=== PATIENT | female | born 1945 | race Caucasian/White ===

== ENCOUNTER 2020-06-29 09:29 | Outpatient (CLI) | payer MEDICARE, SELFPAY ==
--- NOTE | ~2020-06-29 | MM_ITS ---
EXAMINATION: MM screening delbert BI w ariel HISTORY: Screening TECHNIQUE: Craniocaudal and mediolateral oblique 3-D tomosynthesis images were obtained and synthetic 2-D images were generated. CAD analysis was submitted and interpreted. COMPARISON: Comparison to multiple prior studies sequentially, with oldest reviewed study dated 07/2015. BREAST PARENCHYMAL COMPOSITION: There are scattered areas of fibroglandular density. FINDINGS: There is no evidence of suspicious mass, calcification, or architectural distortion to sugg est malignancy in either breast. There has been no suspicious interval change. IMPRESSION: 1. No mammographic evidence of malignancy. 2. Recommend routine screening mammography in one year. BI-RADS Category 1: Negative Reviewed, dictated and finalized at location A.
== END 2020-06-29 09:30 | disposition home or self-care (01) ==
PROVIDERS: PCP Family Medicine; Visit Provider Family Medicine
DX: Z12.31 Encounter for screening mammogram for malignant neoplasm of breast (principal)
CPT/HCPCS: 77063; 77067

== ENCOUNTER 2020-07-01 04:24 | Emergency (ER) | payer MEDICARE, SELFPAY ==
--- NOTE | ~2020-07-01 | XR_ITS ---
EXAMINATION: XR chest 2V DATE: 07/01/2020 04:54 INDICATION: Left-sided chest pain TECHNIQUE: PA and lateral views of the chest are obtained. COMPARISON: 04/29/2019 FINDINGS: The lungs are free of acute opacities. There is no pleural effusion or pneumothorax. The ca rdiomediastinal silhouette is normal. There is moderate thoracic spondylosis. Surgical clips in the r ight upper quadrant are likely from prior cholecystectomy. IMPRESSION: 1. No acute cardiopulmonary abnormality. Reviewed, dictated and finalized at location A.
[2020-07-01 04:26] VITALS: BP 137/69; PULSE 71; RESP 15; TEMP 36.8; O2SAT 97
--- NOTE | 2020-07-01 04:33 | ECG_ITS ---
Measurements Intervals [place] Rate: 69 P: 41 AR: 158 QRS: 11 QRSD: 102 T: 8 QT: 397 QTc: 426 Interpretive Statements SINUS RHYTHM MINIMAL Q WAVES- HIGH LATERAL LEADS BASELINE ARTIFACT- I, II, AVR, V1 BORDERLINE ECG Electronically Signed On 07-01-2020 7:01:54 CDT by Kulwant Marte D.O.
--- NOTE | 2020-07-01 04:33 | ED.CHESTPAIN ---
HPI - Chest Pain General Chief Complaint: Chest Pain Stated Complaint: chest pain Time Seen by Provider: 07/01/20 04:25 History of Present Illness HPI narrative: Epigastric pain radiating into the chest, neck, LUQ since last night. Described as aching. Moderate intesity. Feels like indigestion, but she became worried when it did not resolve. No SOB, Nausea. Related Data Home Medications Medication Instructions Recorded Confirmed albuterol sulfate 8 mg 8 mg PO Q12H 02/03/20 06/29/20 tablet,extended release,12 hr aspirin 81 mg tablet,delayed 81 mg PO DAILY 02/03/20 06/29/20 release oxybutynin chloride 15 mg 15 mg PO DAILY 06/08/20 06/29/20 tablet,extended release 24 hr Allergies Allergy/AdvReac Type Severity Reaction Status Date / Time Corticosteroids Allergy Intermediate topical: Verified 07/01/20 04:33 (Glucocorticoids) swelling at site of application hydrocortisone Allergy Intermediate RASH Verified 07/01/20 04:33 adhesive tape Allergy Mild Rash Verified 07/01/20 04:33 Review of Systems Review of Systems: All systems reviewed & are unremarkable except as noted in HPI and below Constitutional: Constitutional: Denies fever(s) Cardiovascular: Cardiovascular: Reports chest pain Respiratory: Respiratory: Denies dyspnea [facility] Social History Social History Smoking status: Never smoker Alcohol intake: never Additional living arrangements comments: Spouse Leonardo Gender identity (if verbalized by the patient): Female Exam Const: General: no acute distress and alert Nutritional Appearance: obese Orientation/consciousness: patient oriented x3 HENMT: Head: normal to inspection Neck: Neck: normal visual inspection and no lymphadenopathy Chest: Chest palpation & inspection: no tenderness Resp: Effort & Inspection: normal respiratory effort Auscultation: clear to auscultation bilaterally, no rales, no rhonchi and no wheezes Cardio: Jugular venous distension: no JVD Rate: regular rate Rhythm: regular rhythm Heart sounds: no murmurs GI: GI Palp: Yes Soft to palpation and No Tenderness to palpation present (GI) Other: nontender Skin: General skin exam: normal color Neuro: General: patient oriented x3 and moves all extremities Speech: normal speech Extrem: General: no edema Psych: Appearance: well kempt Affect: normal affect Course Vital Signs Vital signs: Vital Signs Temperature 36.8 C 07/01/20 04:26 Pulse Rate 71 07/01/20 04:26 Respiratory Rate 15 07/01/20 04:26 Blood Pressure 137/69 07/01/20 04:26 Pulse Oximetry 97 07/01/20 04:26 Temperature 36.8 C 07/01/20 04:26 Pulse Rate 70 07/01/20 04:42 Respiratory Rate 15 07/01/20 04:26 Blood Pressure 137/69 07/01/20 04:26 Pulse Oximetry 97 07/01/20 04:26 MDM - Chest Pain MDM Narrative Medical decision making narrative: Symptoms not typical for cardiac chest pain. More consistent with GI source. Pain greatly improved with GI cocktail. EKG shows no acute changes. Troponin negative. Pain has been present for several hours prior to presentation, so 3 hour troponin is not necessary. Medical Records Data Attestation: I reviewed the patient's medical records. Lab Data Attestation: I reviewed the patient's lab results. Result diagrams: 07/01/20 04:36 07/01/20 04:36 Labs: Lab Results 07/01/20 07/01/20 Range/Units 04:36 04:36 WBC 6.5 (4.5-10.0) K/mm3 RBC 4.04 L (4.2-5.4) M/mm3 Hgb 10.5 L (12.0-15.0) g/dL Hct 33.8 L (37.0-47.0) % MCV 83.7 (80-100) fl MCH 26.0 (26-34) pg MCHC 31.1 L (32-36) g/dl RDW 16.6 H (11.5-14.5) % Plt Count 204 (150-375) k/mm3 MPV 10.9 H (7.4-10.4) fl Immature Gran % (Auto) 0.3 (0-0.5) % Neut % (Auto) 59.7 (45.5-73.1) % Lymph % (Auto) 27.1 (18.3-44.2) % [place] % (Auto) 10.9 H (2.6-8.5) % Eos % (Auto) 1.7 (0-4.
[2020-07-01 04:42] VITALS: PULSE 70
[2020-07-01 04:44] LABS: Basophils Percent Auto 0.3 % (0.2-1.2); Eosinophils Absolute Auto 0.1 K/mm3 (0-0.3); Eosinophils Percent Auto 1.7 % (0-4.4); Hematocrit 33.8 % (37.0-47.0); Hemoglobin 10.5 g/dL (12.0-15.0); Immature Granulocyte Absolute 0.02 K/mm3 (0.00-0.031); Immature Granulocyte Percent A 0.3 % (0-0.5); Lymphocytes Absolute Auto 1.77 K/mm3 (0.9-3.2); Lymphocytes Percent Auto 27.1 % (18.3-44.2); Mean Corpuscular HGB Conc 31.1 g/dl (32-36); Mean Corpuscular Volume 83.7 fl (80-100); Mean Platelet Volume 10.9 fl (7.4-10.4); Monocytes Absolute Auto 0.7 K/mm3 (0.1-0.6); Monocytes Percent Auto 10.9 % (2.6-8.5); Neutrophils Absolute Auto 3.9 K/mm3 (1.3-6.7); Neutrophils Percent Auto 59.7 % (45.5-73.1); Platelet Count Result 204 k/mm3 (150-375); Red Blood Count 4.04 M/mm3 (4.2-5.4); Red Cell Distribution Width 16.6 % (11.5-14.5); White Blood Count 6.5 K/mm3 (4.5-10.0)
[2020-07-01 04:55] LABS: Alanine Aminotransferase 17 U/L (4-35); Albumin Level 4.2 g/dL (3.5-5.1); Alkaline Phosphatase 82 U/L (38-126); Aspartate Amino Transferase 22 U/L (14-36); Bilirubin,Total 0.4 mg/dL (0.2-1.3); Blood Urea Nitrogen 14 mg/dL (7-17); Calcium 9.8 mg/dL (8.4-10.2); Carbon Dioxide 28 mmol/L (22-30); Chloride 100 mmol/L (98-107); Estimated CRCL calculation 73 ml/min; Estimated Glomerular Filt Rate > 60; Glucose 122 mg/dL (65-105); Sodium 136 mmol/L (137-145)
[2020-07-01 05:07] LABS: Troponin I < 0.012 ng/mL (0.000-0.034)
[2020-07-01 05:48] VITALS: BP 132/64; PULSE 69; RESP 14; TEMP 36.3; O2SAT 97
== END 2020-07-01 05:52 | disposition home or self-care (01) ==
PROVIDERS: Emergency Provider Emergency Medicine; PCP Family Medicine
DX: R07.89 Other chest pain (principal)
CPT/HCPCS: 36415; 71046; 80053; 84484; 85025; 93005; 99284; A9270

== ENCOUNTER 2020-07-05 01:56 | Outpatient (CLI) | payer MEDICARE, SELFPAY ==
[2020-07-05 18:20] LABS: SARS-CoV-2 RNA PCR Negative
== END 2020-07-05 01:57 | disposition home or self-care (01) ==
LOC: ANHCOVIDDT 01:56
PROVIDERS: PCP Family Medicine; Visit Provider Internal Medicine Gastroenterology
DX: Z01.812 Encounter for preprocedural laboratory examination (principal); Z11.59 Encounter for screening for other viral diseases
CPT/HCPCS: 87635; C9803; U0003

== ENCOUNTER 2020-07-07 01:34 | Day surgery (SDC) | payer MEDICARE, SELFPAY ==
[2020-06-29 13:41] VITALS: BMI 33.3
[2020-07-07 09:23] VITALS: BP 125/54; PULSE 78; RESP 18; TEMP 36.4; O2SAT 100
[2020-07-07] MEDS: LACTATED RINGERS 1,000 ML 150 ML IV CONT (09:42)
[2020-07-07 09:46] LABS: Glucose Point of Care 96 (65-105)
--- NOTE | 2020-07-07 10:00 | WPDANESEPPF ---
Anes - Initial Pre Proc Eval Procedure: Operation Date: 07/07/20 10:00 Proposed Procedures p Screening Colonoscopy - Chris Carlson MD Date/Time: 07/07/20 10:00 Surgeon: Chris Carlson MD Pre Op Diagnosis: hx of polyp Patient Data Age: 74 Gender: F Height: 5 ft 4 in Weight: 86.9 kg Last Vital Signs Temp 97.6 F 07/07/20 09:23 Pulse 78 07/07/20 09:23 Resp 18 07/07/20 09:23 BP 125/54 L 07/07/20 09:23 Pulse Ox 100 07/07/20 09:23 Allergies Allergy/AdvReac Type Severity Reaction Status Date / Time Corticosteroids Allergy Intermediate topical: Verified 07/07/20 09:22 (Glucocorticoids) swelling at site of application hydrocortisone Allergy Intermediate RASH Verified 07/07/20 09:22 adhesive tape Allergy Mild Rash Verified 07/07/20 09:22 Home Medications Medication Instructions Recorded Confirmed Type venlafaxine 75 mg capsule,extended 75 mg PO DAILY #90 cap 10/07/19 07/07/20 Rx release 24 hr albuterol sulfate 8 mg 8 mg PO Q12H 02/03/20 07/07/20 History tablet,extended release,12 hr aspirin 81 mg tablet,delayed 81 mg PO DAILY 02/03/20 07/07/20 History release lisinopril 10 mg tablet 10 mg PO DAILY #90 tablet 03/31/20 07/07/20 Rx metformin 500 mg tablet,extended 500 mg PO DAILY #90 tablet 05/04/20 07/07/20 Rx release 24 hr isosorbide mononitrate 30 mg See Rx Instructions .ROUTE 06/01/20 07/07/20 Rx tablet,extended release 24 hr .COMPLEX #90 tablet rosuvastatin 10 mg tablet See Rx Instructions .ROUTE 06/01/20 07/07/20 Rx .COMPLEX #90 tablet oxybutynin chloride 15 mg 15 mg PO DAILY 06/08/20 07/07/20 History tablet,extended release 24 hr esomeprazole magnesium 40 mg 40 mg PO DAILY #90 cap 06/29/20 07/07/20 Rx capsule,delayed release metoprolol succinate 100 mg 100 mg PO .COMPLEX #90 tablet 07/02/20 07/07/20 Rx tablet,extended release 24 hr Laboratory Tests 07/07/20 09:41 POC Capillary Glucose 96 mg/dl mg/dl (65-105) Patient hx anesthesia problems: none Family hx anesthesia problems: none PMFSH Social History Social History Smoking status: Never smoker Alcohol intake: never Additional living arrangements comments: Spouse Leonardo Gender identity (if verbalized by the patient): Female Anes - Eval Final PreProcedure Day of Procedure 07/07/20 10:00 Patient weight: overweight Heart: regular rate and rhythm Lungs: clear to auscultation Airway: Mallampati scale class II Neurological: alert and oriented Last oral intake: >/= 8 hours ASA classification: III Emergent: no Anesthetic plan: proceed Anesthesia type and monitoring: general GIVS and standard monitoring Informed Consent: The patient's anesthetic plan and its attendant risks and benefits were discussed with the patient/family/POA. Questions were solicited and answers provided to the satisfaction of the patient/family/POA.
[2020-07-07 10:34] VITALS: BP 128/77; PULSE 80; RESP 16; O2SAT 100
[2020-07-07 10:44] VITALS: BP 138/69; PULSE 72; RESP 18; O2SAT 97
--- NOTE | 2020-07-09 10:50 | PM.HPGS ---
History of Present Illness History of Present Illness Consent: Risks, benefits, and alternatives have been discussed and questions answered. Patient agrees to proceed with procedure. Chief complaint: hx of polyp Narrative: Diana Mijares is a 74 year old female Here for colon cancer screening. She has had polyps removed in the past PMFSH Past Medical History Medical History Asthma, mild intermittent Chronic GERD Essential hypertension Palpitations with regular cardiac rhythm Type 2 diabetes mellitus without complications Surgical History Surgical History History of left hip replacement History of shoulder surgery right History of total right knee replacement Status post left partial knee replacement Social History Social History Smoking status: Never smoker Alcohol intake: never Additional living arrangements comments: Spouse Leonardo Gender identity (if verbalized by the patient): Female Meds Home Medications and Allergies Home Medications Medication Instructions Recorded Confirmed Type venlafaxine 75 mg capsule,extended 75 mg PO DAILY #90 cap 10/07/19 07/07/20 Rx release 24 hr albuterol sulfate 8 mg 8 mg PO Q12H 02/03/20 07/07/20 History tablet,extended release,12 hr aspirin 81 mg tablet,delayed 81 mg PO DAILY 02/03/20 07/07/20 History release lisinopril 10 mg tablet 10 mg PO DAILY #90 tablet 03/31/20 07/07/20 Rx metformin 500 mg tablet,extended 500 mg PO DAILY #90 tablet 05/04/20 07/07/20 Rx release 24 hr isosorbide mononitrate 30 mg See Rx Instructions .ROUTE 06/01/20 07/07/20 Rx tablet,extended release 24 hr .COMPLEX #90 tablet rosuvastatin 10 mg tablet See Rx Instructions .ROUTE 06/01/20 07/07/20 Rx .COMPLEX #90 tablet oxybutynin chloride 15 mg 15 mg PO DAILY 06/08/20 07/07/20 History tablet,extended release 24 hr esomeprazole magnesium 40 mg 40 mg PO DAILY #90 cap 06/29/20 07/07/20 Rx capsule,delayed release metoprolol succinate 100 mg 100 mg PO .COMPLEX #90 tablet 07/02/20 07/07/20 Rx tablet,extended release 24 hr Allergies Allergy/AdvReac Type Severity Reaction Status Date / Time Corticosteroids Allergy Intermediate topical: Verified 07/07/20 09:22 (Glucocorticoids) swelling at site of application hydrocortisone Allergy Intermediate RASH Verified 07/07/20 09:22 adhesive tape Allergy Mild Rash Verified 07/07/20 09:22 Exam Resp: Auscultation: clear to auscultation bilaterally Cardio: Rate: regular rate Rhythm: regular rhythm GI: GI Palp: Yes Soft to palpation and No Tenderness to palpation present (GI) Assessment and Plan Assessment and plan (1) Colon cancer screening: Code(s): Z12.11 - Encounter for screening for malignant neoplasm of colon Status: Acute Assessment and Plan: Colonoscopy with possible biopsy or polypectomy or cautery or injection of substances.
== END 2020-07-07 11:20 | disposition home or self-care (01) ==
PROVIDERS: PCP Family Medicine; Visit Provider Internal Medicine Gastroenterology
PROC: 0DJD8ZZ Inspection of Lower Intestinal Tract, Via Natural or Artificial Opening Endoscopic (ICD-10-PCS; CPT 45378; principal; 2020-07-07 10:00)
DX: Z12.11 Encounter for screening for malignant neoplasm of colon (principal); K57.30 Diverticulosis of large intestine without perforation or abscess without bleeding; Z86.010 Personal history of colon polyps; E11.9 Type 2 diabetes mellitus without complications; I10 Essential (primary) hypertension; J45.20 Mild intermittent asthma, uncomplicated; Z79.82 Long term (current) use of aspirin; Z79.84 Long term (current) use of oral hypoglycemic drugs
CPT/HCPCS: G0105; J2704; J7120

== ENCOUNTER 2020-07-22 09:28 | Outpatient (CLI) | payer MEDICARE, SELFPAY ==
--- NOTE | ~2020-07-22 | XR_ITS ---
EXAMINATION: XR knee LT min 4V DATE: 07/22/2020 09:57 INDICATION: Left knee pain. TECHNIQUE: 5 views of left knee were obtained. COMPARISON: Left knee radiographs 01/15/2018 FINDINGS: There is a medial compartment arthroplasty in near-anatomic alignment. No significant perip rosthetic lucency to suggest loosening or infection. No fracture. There is mild osteoarthritis of pat ellofemoral compartment. No knee joint effusion. IMPRESSION: 1. Medial compartment arthroplasty in near-anatomic alignment. 2. Mild osteoarthritis of patellofemoral compartment. Reviewed, dictated and finalized at location B.
== END 2020-07-22 09:29 | disposition home or self-care (01) ==
PROVIDERS: PCP Family Medicine; Visit Provider Family Medicine
DX: M17.12 Unilateral primary osteoarthritis, left knee (principal)
CPT/HCPCS: 73564

== ENCOUNTER 2021-03-11 12:36 | Outpatient (CLI) | payer MEDICARE, SELFPAY ==
--- NOTE | ~2021-03-11 | DEXA_ITS ---
Bone Density Report Name: Diana Mijares Age: 75 Sex: Female Ethnicity: White Date of : 1945 Indication: osteopenia; height loss; prior fracture; asthma or emphysema; hysterectomy; Referring Provider: Akilah Pascal Study: Bone densitometry was performed. Exam Date: March 11, 2021 Accession number: [id number] Bone Density: Region BMD T-score Z-score Classification AP Spine (L1-L4) 0.869 -1.6 0.7 Osteopenia Femoral Neck (Right) 0.686 -1.5 0.5 Osteopenia Total Hip (Right) 0.876 -0.5 1.1 Normal World Health Organization criteria for BMD impression classify patients as: Normal (T-score at or above -1.0), Osteopenia (T-score between -1.0 and -2.5), or Osteoporosis (T-score at or below -2.5). 10-year Fracture Risk(1): Major Osteoporotic Fracture 15% Hip Fracture 2.3% Reported Risk Factors: [place] (), Neck BMD=0.686, BMI=33.8, previous fracture (1) FRAX(R) Version 3.08. Fracture probability calculated for an untreated patient. Fracture probability may be lower if the patient has received treatment. Previous Exams: Region Exam Age BMD T-score BMD Change BMD Change Date g/cm2 vs Baseline vs Previous AP Spine(L1-L4) 03/11/2021 75 0.869 -1.6 -0.070(-7.5%)# 0.049(6.0%)# 08/26/2013 67 0.820 -2.1 -0.119(-12.7%) -0.056(-6.3%)# 05/17/2011 65 0.875 -1.6 -0.064(-6.8%)* 0.084(10.6%)* 01/07/2009 63 0.791 -2.3 -0.148(-15.7%) -0.148(-15.7%) 03/15/2005 59 0.939 -1.0 Total Hip(Right) 03/11/2021 75 0.876 -0.5 -0.095(-9.8%)# 0.010(1.1%)# 08/26/2013 67 0.867 -0.6 -0.105(-10.8%) 0.010(1.2%)# 05/17/2011 65 0.857 -0.7 -0.115(-11.8%) 0.027(3.3%)* 01/07/2009 63 0.829 -0.9 -0.142(-14.6%) -0.142(-14.6%) 03/15/2005 59 0.972 0.2 *Denotes significance at 95% confidence level, LSC for AP Spine = 0.022 g/cm2, LSC for Total Hip = 0.027 g/cm2 Clinical Information Provided by Patient: Has had a low trauma fracture Has the following medical conditions: Asthma or Emphysema, Hysterectomy Patient maximum height was 63.5 Menopause Age: 47 Does not regularly consume dairy products Drinks caffeinated beverages Onset of menses at age 14 Number of children 4 Impression: The patient has low bone mass, based on the Total Spine T-score. The patient has an estimated ten-year risk of hip fracture of 2.3% and an estimated ten-year risk of major fracture of 15%, based on the WHO FRAX algorithm. The patient has risk factors, including: previous fracture. No s
--- NOTE | ~2021-03-11 | MMUS_ITS ---
EXAMINATION: MM diagnostic delbert BI w ariel, US breast LT limited HISTORY: Left nipple inversion. Left breast pain. TECHNIQUE: Additional 3-D tomosynthesis images of the breasts were performed and synthetic 2-D images were generated. CAD analysis was submitted and interpreted. High resolution Limited left breast ultr asound was performed. COMPARISON: Comparison to multiple prior studies sequentially, with oldest reviewed study dated 01/07. BREAST PARENCHYMAL COMPOSITION: Breast composed of scattered areas of fibroglandular density. FINDINGS: MAMMOGRAPHIC FINDINGS: There is chronic left nipple inversion. There are no suspicious masses, calcifications or architectur al distortion to suggest malignancy. ULTRASOUND: Limited left breast ultrasound: At 4:00 near the nipple there is a 3 mm cyst. No suspicious masses to suggest malignancy. IMPRESSION: 1. No evidence for malignancy in either breast. 2. Routine yearly screening mammogram and regular clinical breast examination are recommended. BI-RADS Category 2: Benign finding(s). Reviewed, dictated and finalized at location A. IMPRESSION: 1. No evidence for malignancy in either breast. 2. Routine yearly screening mammogram and regular clinical breast examination a re recommended. BI-RADS Category 2: Benign finding(s).
== END 2021-03-11 12:37 | disposition home or self-care (01) ==
LOC: ANHIMG 12:37
PROVIDERS: PCP Family Medicine; Visit Provider Family Medicine
DX: N63.20 Unspecified lump in the left breast, unspecified quadrant (principal); N60.11 Diffuse cystic mastopathy of right breast; N60.12 Diffuse cystic mastopathy of left breast; M85.88 Other specified disorders of bone density and structure, other site; M85.851 Other specified disorders of bone density and structure, right thigh
CPT/HCPCS: 76642; 77062; 77066; 77080; G0279

== ENCOUNTER 2021-04-23 11:43 | Emergency (ER) | payer MEDICARE, SELFPAY ==
[2021-04-23 11:52] VITALS: BP 146/94; PULSE 59; RESP 16; TEMP 35.9; O2SAT 97
--- NOTE | 2021-04-23 12:07 | ED.EAR ---
HPI - Ear Problem General Chief complaint: Ear Stated complaint: ear Time Seen by Provider: 04/23/21 11:50 Source: patient Mode of arrival: ambulatory Limitations: no limitations History of Present Illness HPI Narrative: Diana Mijares is a 75 yo female with a history of GERD,. Hypertension, diabetes, high cholesterol, bladder leakage, , who comes to [facility] with complaints of a foreign object in her left ear that she states she has felt has been there for 2 days since she cut grass. She tried to extract with a Q-tip and said she thought she got Part of a bug out. Denies itching, pain, bleeding, tinnitus, dizziness Related Data Home Medications Medication Instructions Recorded Confirmed oxybutynin chloride 15 mg 15 mg PO DAILY 06/08/20 02/08/21 tablet,extended release 24 hr Allergies Allergy/AdvReac Type Severity Reaction Status Date / Time Corticosteroids Allergy Intermediate topical: Verified 07/07/20 09:22 (Glucocorticoids) swelling at site of application hydrocortisone Allergy Intermediate RASH Verified 07/07/20 09:22 adhesive tape Allergy Mild Rash Verified 07/07/20 09:22 Review of Systems Review of Systems: Narrative: CONSTITUTIONAL: Denies fever, chills, sweats. EYES: Denies visual changes, redness, discharge. ENT: Denies rhinorrhea, congestion, sore throat, foreign object in left ear CARDIOVASCULAR: Denies chest pain, palpitations, edema. RESPIRATORY: Denies dyspnea, wheezing, cough GASTROINTESTINAL: Denies abdominal pain, nausea, vomiting, diarrhea. GENITOURINARY: Denies dysuria, hematuria, abnormal discharge SKIN: Denies rash or itching. NEUROLOGIC: Denies numbness, or focal weakness. PSYCHIATRIC: Denies anxiety or depression. [facility] Past Medical History Medical History Asthma, mild intermittent Chronic GERD Essential hypertension Mixed hyperlipidemia Palpitations with regular cardiac rhythm Type 2 diabetes mellitus without complications Surgical History Surgical History History of left hip replacement History of shoulder surgery right History of total right knee replacement Status post left partial knee replacement Social History Social History Alcohol intake: never Additional living arrangements comments: Spouse Leonardo Gender identity (if verbalized by the patient): Female Comments At time of signature, I agree with nursing past medical, surgical, social and family history. There is no relevant family history pertinent to the presenting complaint. Exam Narrative: Exam Narrative: GENERAL: This is a well-nourished, well-developed patient, in mild distress. HEAD: normocephalic, atraumatic. EYES: Sclera clear/white. Vision is grossly intact. EARS: External ears normal, auditory canalon left has insect imbedded along TM and without drainage, TMs reddened with obstruction on left. hearing grossly intact. NOSE: External nose normal without nasal discharge, nares without redness, no rhinorrhea. THROAT: Mucous membranes moist, NECK: Neck supple, non-tender CARDIOVASCULAR: Regular rate and rhythm without murmurs, gallops, or rubs. RESPIRATORY: Clear to auscultation. Breath sounds equal bilaterally. No wheezes, rales, or rhonchi. GASTROINTESTINAL: Abdomen soft, SKIN: warm, intact with no suspicious lesions or rash, good texture and turgor. NEURO: awake, alert, and oriented to person, place and time. There were no obvious focal neurologic abnormalities. Steady gait EXTREMITIES: Normal range of motion. BACK: Nontender without deformity Course Course Emergency Course: Patient comes to [facility] with object in left ear that had to be dissected from cutting grass 2 days ago Flush with both elevated ear with water and with peroxide and using a lighted curette to curette. Unable to remove object trie
--- NOTE | 2021-04-23 12:46 | PC.NURSE ---
Multiple attempts to remove bug from left ear with elephant ear irrigation and suction. Per H Matias GARRIDO
== END 2021-04-23 13:26 | disposition home or self-care (01) ==
PROVIDERS: Emergency Provider Nurse Practitioner; PCP Family Medicine
DX: T16.2XXA Foreign body in left ear, initial encounter (principal); J45.909 Unspecified asthma, uncomplicated; G21.9 Secondary parkinsonism, unspecified; I10 Essential (primary) hypertension; E78.2 Mixed hyperlipidemia; E11.9 Type 2 diabetes mellitus without complications
CPT/HCPCS: 69200; 99213; G0463

== ENCOUNTER 2021-05-11 20:33 | Emergency (ER) | payer MEDICARE, SELFPAY ==
--- NOTE | ~2021-05-11 | CT_ITS ---
EXAMINATION: CT abdomen pelvis w con DATE: 05/12/2021 01:02 INDICATION: Left flank pain. UTI. TECHNIQUE: Computed tomography (CT) of the abdomen and pelvis was performed without intravenous contr ast. The dose-length product was 1122.64 mGy-cm. Automated exposure control and iterative reconstruct ion technique were employed. COMPARISON: CT dated 03/27/2011. FINDINGS: There is dependent atelectasis. Heart size normal. No significant pleural or pericardial ef fusion. Status post cholecystectomy. Mild atherosclerosis. No evidence for aneurysm. There is bilateral urothelial enhancement most prominent in the right mid ureter with subtle periuret eral edema. Small subcentimeter hypovascular left renal mass, most likely cysts. Mild right hydroneph rosis. Status post cholecystectomy. The spleen is unremarkable. Multiple accessory splenules. The pancreas, adrenal glands are unremarkable. Normal appendix. Nonobstructive bowel gas pattern. Status post hyste rectomy. Small hiatal hernia. Left total hip arthroplasty. No acute osseous abnormality. Moderate lumbar spondylosis with grade 1 degenerative spondylolisthesis at L5-S1. Accentuated lumbar lordosis. IMPRESSION: 1. Abnormal bilateral urothelial enhancement/thickening, most prominent in the right mid ureter. Find ings suspicious for ascending urinary tract infection given the clinical history, although transition al cell carcinoma of the ureter is not excluded. Consider urology consultation. Reviewed, dictated and finalized at location A. IMPRESSION: 1. Abnormal bilateral urothelial enhancement/thickening, most prominent in the right mid ureter. Findings suspicious for ascending urinary tract infection giv en the clinical history, although transitional cell carcinoma of the ureter is not excluded. Consider urology consultation.
[2021-05-11 21:08] VITALS: BP 142/62; PULSE 118; RESP 14; TEMP 36.9; O2SAT 96
[2021-05-11 21:11] VITALS: BP 123/66; PULSE 112; RESP 18; TEMP 36.7; O2SAT 95
[2021-05-11 21:24] LABS: Basophils Percent Auto 0.3 % (0.2-1.2); Eosinophils Percent Auto 0.3 % (0-4.4); Hematocrit 35.9 % (37.0-47.0); Hemoglobin 11.7 g/dL (12.0-15.0); Immature Granulocyte Absolute 0.01 K/mm3 (0.00-0.031); Immature Granulocyte Percent A 0.1 % (0-0.5); Lymphocytes Absolute Auto 1.21 K/mm3 (0.9-3.2); Lymphocytes Percent Auto 17.2 % (18.3-44.2); Mean Corpuscular HGB Conc 32.6 g/dl (32-36); Mean Corpuscular Hemoglobin 27.7 pg (26-34); Mean Corpuscular Volume 85.1 fl (80-100); Mean Platelet Volume 10.5 fl (7.4-10.4); Monocytes Absolute Auto 0.9 K/mm3 (0.1-0.6); Monocytes Percent Auto 13.4 % (2.6-8.5); Neutrophils Absolute Auto 4.8 K/mm3 (1.3-6.7); Neutrophils Percent Auto 68.7 % (45.5-73.1); Platelet Count Result 195 k/mm3 (150-375); Red Blood Count 4.22 M/mm3 (4.2-5.4); Red Cell Distribution Width 16.3 % (11.5-14.5)
[2021-05-11 21:33] LABS: Alanine Aminotransferase 18 U/L (4-35); Alkaline Phosphatase 102 U/L (38-126); Anion Gap 8 mmol/L (8-16); Aspartate Amino Transferase 31 U/L (14-36); Bilirubin,Total 0.7 mg/dL (0.2-1.3); Blood Urea Nitrogen 11 mg/dL (7-17); Calcium 9.6 mg/dL (8.4-10.2); Carbon Dioxide 29 mmol/L (22-30); Chloride 99 mmol/L (98-107); Estimated CRCL calculation 63 ml/min; Estimated Glomerular Filt Rate > 60; Glucose 150 mg/dL (65-105); Lipase 57 U/L (23-300); Potassium 3.9 mmol/L (3.4-5.0); Sodium 136 mmol/L (137-145)
[2021-05-11 21:39] LABS: Add Urine Microscopic? YES; Appearance Urine Clear (Clear); Bilirubin Urine Negative (Negative); Blood Urine 1+ (Negative); Color Urine Yellow (Yellow); Glucose Urine UA Negative (Negative); Ketones Urine Trace mg/dL (Negative); Leukocyte Esterase Ur Trace LEU/UL (Negative); Mucus Urine Rare /lpf; Nitrate Urine Negative (Negative); Protein Urine 1+ mg/dL (Negative); Specific Grav Ur 1.011 (1.001-1.035); Squamous Epithelial Cell Urine Moderate /hpf (Few)
[2021-05-12 00:17] VITALS: BP 114/81; PULSE 100; RESP 16; TEMP 37.3; O2SAT 96
[2021-05-12] MEDS: SODIUM CHLORIDE 0.9% IV 1,000 ML 999 ML IV CONT (00:50)
[2021-05-12] MEDS: KETOROLAC 30 MG/ML VIAL (*BKC) 15 MG IV PUSH (01:11)
[2021-05-12] MEDS: ONDANSETRON INJ 4 MG/2 ML VIAL IV PUSH (01:11)
--- NOTE | 2021-05-12 01:17 | ED.GENADULT ---
HPI - General Adult General Chief complaint: Urogenital-Female Stated complaint: kidney infect, cant keep food down, fever, sunday Time Seen by Provider: 05/12/21 00:10 History of Present Illness HPI narrative: Patient 75-year-old female who presents the emergency department with chief complaint of abdominal discomfort and UTI. Patient reports she was diagnosed with a UTI by her primary care physician and has been taking what sounds like Macrobid. Patient states that she has been having the patient reports has been having nausea with this reports has had fevers reports that she does not feel as though her symptoms are improving. Patient states that there is some discomfort in her abdomen and in her flank. Related Data Home Medications Medication Instructions Recorded Confirmed oxybutynin chloride 15 mg 15 mg PO DAILY 06/08/20 05/03/21 tablet,extended release 24 hr Allergies Allergy/AdvReac Type Severity Reaction Status Date / Time Corticosteroids Allergy Intermediate topical: Verified 05/12/21 00:23 (Glucocorticoids) swelling at site of application hydrocortisone Allergy Intermediate RASH Verified 05/12/21 00:23 adhesive tape Allergy Mild Rash Verified 05/12/21 00:23 Review of Systems Review of Systems: Narrative: A 10 system review of systems was completed on the patient and is negative except for what is stated in the HPI. Nursing and ancillary documentation was reviewed. [facility] Past Medical History Medical History Asthma, mild intermittent Chronic GERD Essential hypertension Mixed hyperlipidemia Palpitations with regular cardiac rhythm Type 2 diabetes mellitus without complications Surgical History Surgical History History of left hip replacement History of shoulder surgery right History of total right knee replacement Status post left partial knee replacement Social History Social History Smoking status: Never smoker Alcohol intake: never Substance use: never Substance use type: does not use Additional living arrangements comments: Spouse Leonardo Gender identity (if verbalized by the patient): Female Exam Narrative: Exam Narrative: GENERAL: Well-appearing, well-nourished, and in no acute distress. HEAD: Normocephalic, atraumatic. EYES: PERRLA and EOMI. ENT: Nares clear, no rhinorrhea or epistaxis. Mucous membranes moist. NECK: Supple. CHEST: Clear to auscultation. No respiratory distress. HEART: Regular rate and rhythm. No murmur heard. Normal peripheral pulses. ABDOMEN: Soft, nontender, nondistended, normal active bowel sounds. EXTREMITIES: Normal range of motion. No edema. SKIN: Warm, dry, no rash. NEURO: No focal deficits. Alert and oriented x3. PSYCH: Normal mood and affect. Course Vital Signs Vital signs: Vital Signs Temperature 36.9 C 05/11/21 21:08 Pulse Rate 118 H 05/11/21 21:08 Respiratory Rate 14 05/11/21 21:08 Blood Pressure 142/62 H 05/11/21 21:08 Pulse Oximetry 96 05/11/21 21:08 Temperature 37.3 C 05/12/21 00:17 Pulse Rate 95 05/12/21 02:36 Respiratory Rate 18 05/12/21 02:36 Blood Pressure 117/69 05/12/21 02:36 Pulse Oximetry 97 05/12/21 02:36 Medical Decision Making Vital Signs Vital Signs: Vital Signs Temperature 36.9 C 05/11/21 21:08 Pulse Rate 118 H 05/11/21 21:08 Respiratory Rate 14 05/11/21 21:08 Blood Pressure 142/62 H 05/11/21 21:08 Pulse Oximetry 96 05/11/21 21:08 Temperature 37.3 C 05/12/21 00:17 Pulse Rate 95 05/12/21 02:36 Respiratory Rate 18 05/12/21 02:36 Blood Pressure 117/69 05/12/21 02:36 Pulse Oximetry 97 05/12/21 02:36 Lab Data Result diagrams: 05/11/21 21:17 05/11/21 21:17 Labs: Lab Results 05/11/21 05/11/21 05/11/21 Rang
--- NOTE | 2021-05-12 01:29 | PC.NURSE ---
Rocephin out of stock in the medical centers. Notified pharmacy at this time.
[2021-05-12 01:36] VITALS: BP 105/64; PULSE 94; RESP 16; O2SAT 97
--- NOTE | 2021-05-12 02:30 | PC.NURSE ---
Called pharmacy to follow up on Rocephin for pt. Spoke to Vignesh and he stated he will send up the medication.
[2021-05-12 02:36] VITALS: BP 117/69; PULSE 95; RESP 18; O2SAT 97
[2021-05-12 03:30] VITALS: BP 110/67; PULSE 97; RESP 18; O2SAT 95
== END 2021-05-12 03:30 | disposition home or self-care (01) ==
PROVIDERS: Family Medicine; Emergency Provider Emergency Medicine; PCP Family Medicine
DX: N10 Acute pyelonephritis (principal); J45.20 Mild intermittent asthma, uncomplicated; K21.9 Gastro-esophageal reflux disease without esophagitis; I10 Essential (primary) hypertension; E78.2 Mixed hyperlipidemia; E11.9 Type 2 diabetes mellitus without complications; Z96.653 Presence of artificial knee joint, bilateral; Z96.642 Presence of left artificial hip joint; Z79.84 Long term (current) use of oral hypoglycemic drugs
CPT/HCPCS: 36415; 74177; 80053; 81001; 83690; 85025; 87086; 87088; 96361; 96365; 96375; 99284; J0696; J1885; J2405; J7030; Q9967

== ENCOUNTER 2021-06-20 09:28 | Outpatient (CLI) | payer MEDICARE, SELFPAY ==
--- NOTE | ~2021-06-20 | CT_ITS ---
EXAMINATION: CT abdomen pelvis wo/w con DATE: 06/20/2021 10:50 INDICATION: Urothelial thickening and enhancement on recent CT TECHNIQUE: Computed tomography (CT) of the abdomen and pelvis was performed without intravenous contr ast. CT of the abdomen and pelvis was then performed with a total of 130 mL Omnipaque 350 intravenous contrast using a double-bolus technique for simultaneous opacification of the renal parenchyma and r enal collecting system. The dose-length product (DLP) was 2437.04 mGy-cm. Automated exposure control and iterative reconstruction technique were employed. COMPARISON: 05/02/2021 FINDINGS: Minimal dependent atelectasis is present in the lung bases. The heart size is normal. There is a small sliding hiatal hernia. The gallbladder is surgically absent. The liver, spleen, pancreas, and adrenal glands are normal. There is a 12 mm cyst of the left kidney upper pole. No suspicious re nal or urothelial lesion is identified. The previously described urothelial thickening has resolved. There is no hydronephrosis or hydroureter. The appendix is normal. Streak artifact from left hip arth roplasty partially obscures visualization of the pelvis. No pathologically enlarged abdominal or pelv ic lymph nodes are identified. There is no free intraperitoneal gas or evidence of bowel obstruction. There is calcified atherosclerosis of the aorta and many of the other arteries. There is moderate jamel mbar spondylosis. IMPRESSION: 1. Interval resolution of the previously described urothelial thickening and enhancement of the urete rs, most consistent with resolved infection/inflammation. Reviewed, dictated and finalized at location A. IMPRESSION: 1. Interval resolution of the previously described urothelial thickening and en hancement of the ureters, most consistent with resolved infection/inflammation.
--- NOTE | ~2021-06-20 | US_ITS ---
US renal BI 06/20/2021 10:56 Procedure: Realtime transabdominal ultrasound of the kidneys and bladder. Indication: Tubulointerstitial nephritis Comparison: No prior studies for comparison. Findings: Renal echotexture is normal bilaterally without hydronephrosis, contour deforming mass or r enal calculus. The right kidney measures 11.1 cm and left kidney measures 11.2 cm. Bladder within no rmal limits. Impression: 1: Unremarkable renal ultrasound. No stones, masses or hydronephrosis. Reviewed, dictated and finalized at location A. Impression: 1: Unremarkable renal ultrasound. No stones, masses or hydronephrosis.
[2021-06-20 10:28] LABS: Estimated Glomerular Filt Rate > 60
== END 2021-06-20 09:29 | disposition home or self-care (01) ==
LOC: ANHIMG 09:31
PROVIDERS: PCP Family Medicine; Visit Provider Family Medicine
DX: R10.12 Left upper quadrant pain (principal); R93.5 Abnormal findings on diagnostic imaging of other abdominal regions, including retroperitoneum
CPT/HCPCS: 74178; 76775; Q9967

== ENCOUNTER 2021-07-04 14:01 | Outpatient (CLI) | payer MEDICARE, SELFPAY ==
[2021-07-04 14:19] LABS: Basophils Percent Auto 0.3 % (0.2-1.2); Eosinophils Absolute Auto 0.2 K/mm3 (0-0.3); Eosinophils Percent Auto 2.6 % (0-4.4); Hematocrit 34.6 % (37.0-47.0); Hemoglobin 10.9 g/dL (12.0-15.0); Immature Granulocyte Absolute 0.01 K/mm3 (0.00-0.031); Immature Granulocyte Percent A 0.2 % (0-0.5); Lymphocytes Absolute Auto 1.44 K/mm3 (0.9-3.2); Lymphocytes Percent Auto 24.5 % (18.3-44.2); Mean Corpuscular HGB Conc 31.5 g/dl (32-36); Mean Corpuscular Hemoglobin 27.3 pg (26-34); Mean Corpuscular Volume 86.5 fl (80-100); Mean Platelet Volume 10.6 fl (7.4-10.4); Monocytes Absolute Auto 0.6 K/mm3 (0.1-0.6); Monocytes Percent Auto 9.5 % (2.6-8.5); Neutrophils Absolute Auto 3.7 K/mm3 (1.3-6.7); Neutrophils Percent Auto 62.9 % (45.5-73.1); Platelet Count Result 207 k/mm3 (150-375); Red Cell Distribution Width 15.8 % (11.5-14.5); Reticulocyte Hemoglobin Conten 30.3 pg (28.2-35.7); Reticulocyte Percent 1.73 % (0.7-4.3); Reticulocytes Absolute 0.07 B/L (32.2-175.7); White Blood Count 5.9 K/mm3 (4.5-10.0)
[2021-07-04 17:09] LABS: Iron 48 ug/dL (37-170)
[2021-07-04 17:11] LABS: Alanine Aminotransferase 17 U/L (4-35); Alkaline Phosphatase 74 U/L (38-126); Anion Gap 7 mmol/L (8-16); Aspartate Amino Transferase 22 U/L (14-36); Bilirubin,Total 0.4 mg/dL (0.2-1.3); Blood Urea Nitrogen 11 mg/dL (7-17); Calcium 9.4 mg/dL (8.4-10.2); Carbon Dioxide 26 mmol/L (22-30); Chloride 107 mmol/L (98-107); Estimated Glomerular Filt Rate > 60; Glucose 132 mg/dL (65-110); Lactate Dehydrogenase 399 U/L (313-618); Sodium 140 mmol/L (137-145)
[2021-07-04 17:19] LABS: Percent Iron Saturation 13 % (20-50)
[2021-07-04 18:17] LABS: Folic Acid 11.8 ng/mL (2.76->20)
[2021-07-07 10:54] LABS: Methylmalonic Acid 96 nmol/L (87-318)
== END 2021-07-04 14:02 | disposition home or self-care (01) ==
LOC: ANHLAB 14:03
PROVIDERS: PCP Family Medicine; Visit Provider Internal Medicine Hematology & Oncology
DX: D64.9 Anemia, unspecified (principal)
CPT/HCPCS: 36415; 80053; 82607; 82728; 82746; 83540; 83550; 83615; 83921; 84238; 85025; 85046

== ENCOUNTER → 2021-09-13 08:05 | Outpatient (CLI) | payer MEDICARE, SELFPAY ==
--- NOTE | ~2021-09-13 | XR_ITS ---
EXAMINATION: XR shoulder LT min 2V DATE: 09/13/2021 08:26 INDICATION: Left shoulder pain TECHNIQUE: AP internally and externally rotated, AP oblique externally rotated and axillary views of the left shoulder were obtained. COMPARISON: None FINDINGS: Normal alignment. No fracture.Mild glenohumeral and acromioclavicular osteoarthritis. Multilevel sev ere facet osteoarthritis at the left side of the mid to lower cervical spine. Visualized portion of t he left lung is clear. Soft tissues are unremarkable. IMPRESSION: Mild left glenohumeral and acromioclavicular osteoarthritis. Reviewed, dictated and finalized at location A.
== END ==
PROVIDERS: Visit Provider Orthopaedic Surgery
DX: M19.012 Primary osteoarthritis, left shoulder (principal)
CPT/HCPCS: 73030

== ENCOUNTER → 2021-11-01 14:29 | Outpatient (CLI) | payer MEDICARE, SELFPAY ==
--- NOTE | ~2021-11-01 | MR_ITS ---
EXAMINATION: MR shoulder LT wo con DATE: 11/01/2021 15:51 INDICATION: Left shoulder pain TECHNIQUE: Magnetic resonance imaging (MRI) of the left shoulder was performed without intravenous co ntrast. Sequences included axial PD-weighted FS FSE, coronal oblique PD-weighted FS FSE, coronal obli que T2-weighted FS FSE, sagittal PD-weighted FS FSE, and sagittal T1-weighted SE. COMPARISON: None. FINDINGS: Coracoacromial arch: The acromion undersurface is curved in morphology (type II). The coracoacromial ligament is normal. M oderate acromioclavicular osteoarthritis. Rotator cuff: Moderate supraspinatus and infraspinatus tendinopathy greatest at the conjoined portion of the tendon without discrete tear. Mild subscapularis tendinopathy without discrete tear. The teres minor tendon is normal. Relatively uniform mild likely age-related muscular atrophy at the shoulder. No asymmetri c rotator cuff muscle atrophy. Biceps tendon, glenoid labrum and glenohumeral cartilage: Mild tendinopathy of the intra-articular long head biceps tendon without discrete tear. Diffuse gunnar l tear which spares the 9:00 to 6:00 position of the posterior inferior glenoid labrum. Partial-thick ness cartilage loss at the glenoid with posterior predominance and small region of increased marrow s ignal along the posterior superior rim. Additional partial thickness cartilage loss at the humeral he ad with chondral surface regularity greatest at the superior to superomedial aspect of the humeral he ad. There is marrow edema surrounding a small region with increased subarticular sclerosis and flatte chaz of the articular cortex which could represent a small impaction fracture or collapsed region of osteonecrosis. Fluid: Small glenohumeral joint effusion predominantly in the axillary and deep subscapular recesses with pr oportional extension of fluid along the long head biceps tendon sheath.. 4 mm loose body at the axill lee recess. Mild increased fluid signal in the subacromial/subdeltoid bursa consistent with minimal b ursitis. Bones: In addition to the edema surrounding the small region of cortical flattening of the humeral head ther e is also some mild cystlike change at the superior facet footplate of the rotator cuff and increased marrow signal along the lateral margin of the intertubercular groove. IMPRESSION: 1. Mild to moderate glenohumeral osteoarthritis with diffuse labral tear relatively sparing the poste rior inferior labrum. 2. Marrow edema surrounding a small region of flattening of the articular cortex at the superomedial humeral head which could represent a small impaction fracture if there has been prior trauma or colla psed region of osteonecrosis. 3. Moderate supraspinatus and infraspinatus tendinopathy and mild subscapularis tendinopathy without discrete tear. 4. Mild tendinopathy of the intra-articular long head biceps tendon. 5. Moderate acromioclavicular osteoarthritis with minimal subacromial/subdeltoid bursitis. Reviewed, dictated and finalized at location B. [employer] IMPRESSION: 1. Mild to moderate glenohumeral osteoarthritis with diffuse labral tear relati vely sparing the posterior inferior labrum. 2. Marrow edema surrounding a small region of flattening of the articular heriberto x at the superomedial humeral head which could represent a small impaction frac ture if there has been prior trauma or collapsed region of osteonecrosis. 3. Moderate supraspinatus and infraspinatus tendinopathy and mild subscapularis tendinopathy without discrete tear. 4. Mild tendinopathy of the intra-articular long head biceps tendon. 5. Moderate acromioclavicular osteoarthritis with minimal subacromial/subdeltoi d bursitis.
== END ==
PROVIDERS: PCP Family Medicine; Visit Provider Nurse Practitioner
DX: M19.012 Primary osteoarthritis, left shoulder (principal)
CPT/HCPCS: 73221

== ENCOUNTER 2021-11-15 13:20 | Outpatient (CLI) | payer MEDICARE, SELFPAY ==
--- NOTE | ~2021-11-15 | US_ITS ---
US renal BI 11/15/2021 13:59 Procedure: Realtime transabdominal ultrasound of the kidneys and bladder. Indication: Right flank pain for one week. Comparison: Ultrasound dated 06/20/2021 Findings: Renal echotexture is normal bilaterally without hydronephrosis, contour deforming mass or r enal calculus. The right kidney measures 11.1 cm and left kidney measures 11.3 cm. Bladder within no rmal limits. Impression: 1: Unremarkable renal ultrasound. No stones, masses or hydronephrosis. Reviewed, dictated and finalized at location A. LASTER Impression: 1: Unremarkable renal ultrasound. No stones, masses or hydronephrosis.
== END 2021-11-15 13:21 | disposition home or self-care (01) ==
LOC: ANHIMG 13:25
PROVIDERS: PCP Family Medicine; Visit Provider Family Medicine
DX: R10.9 Unspecified abdominal pain (principal)
CPT/HCPCS: 76775

== ENCOUNTER 2021-12-01 07:24 | Outpatient (RCR) | payer MEDICARE, SELFPAY ==
[2021-12-01 11:34] VITALS: BP 107/53; PULSE 82; RESP 18; TEMP 35.4; O2SAT 98
[2021-12-01] MEDS: ACETAMINOPHEN 325 MG TABLET 650 MG PO (11:35)
[2021-12-01] MEDS: FAMOTIDINE 20 MG TABLET PO (11:35)
[2021-12-01] MEDS: diphenhydrAMINE HCl CAP 25 MG CAPSULE PO (11:35)
[2021-12-01 12:58] VITALS: BP 103/40; PULSE 61; O2SAT 94
[2021-12-01 13:00] VITALS: BP 96/36
== END 2021-12-01 17:00 ==
LOC: AMCINF 07:24
PROVIDERS: PCP Family Medicine; Referring Provider Family Medicine; Visit Provider Internal Medicine Hematology & Oncology
DX: U07.1 COVID-19 (principal); I10 Essential (primary) hypertension; E11.9 Type 2 diabetes mellitus without complications
CPT/HCPCS: A9270; M0247; Q0247

== ENCOUNTER 2022-03-07 10:24 | Outpatient (CLI) | payer MEDICARE, SELFPAY ==
--- NOTE | ~2022-03-07 | XR_ITS ---
EXAMINATION: XR lg joint inject/asp w image DATE: 03/07/2022 11:33 INDICATION: Right hip pain. TECHNIQUE: A time-out was performed to verify the patient's name, date of , and procedure to b e performed. The procedure including the risks, benefits, and alternatives was discussed with the pat ient. Risks discussed included bleeding and infection. The patient understood the risks and agreed to proceed. The skin overlying the right hip joint was prepped and draped in usual sterile fashion. A nesthetic was administered with 1% lidocaine subcutaneously. A 22 G needle was advanced under fluoro scopic guidance into the joint. Injection of 1 mL of Omnipaque 240 confirmed intra-articular positio n of the needle. Subsequently, injectate consisting of 5 mL 1% lidocaine and 2 mL 10 mg/mL Kenalog w as instilled. The needle was removed and the entry site was cleaned and dressed. There were no imme diate complications. Fluoroscopy exposure time was 0.1 minutes. The total number of images was 2. FINDINGS: Real-time fluoroscopy demonstrates the needle in the right hip joint. Patient's pain prior to procedure:5/10. Patient's pain following the procedure: 2/10. IMPRESSION: 1. Fluoroscopy guided right hip joint injection of local anesthetic and steroid with decrease in the patient's presenting pain. Reviewed, dictated and finalized at location A.
== END 2022-03-07 10:25 | disposition home or self-care (01) ==
PROVIDERS: PCP Family Medicine; Visit Provider Nurse Practitioner
DX: M25.551 Pain in right hip (principal)
CPT/HCPCS: 20610; 77002; J3301; Q9966

== ENCOUNTER → 2022-04-04 08:43 | Outpatient (CLI) | payer MEDICARE, SELFPAY ==
--- NOTE | ~2022-04-04 | MR_ITS ---
EXAMINATION: MR hip RT wo con DATE: 04/04/2022 09:45 INDICATION: Unilateral primary osteoarthritis of the right hip TECHNIQUE: Magnetic resonance imaging (MRI) of the right hip was performed without intravenous contr ast. Sequences included full-field axial PD-weighted FS FSE and T1-weighted FSE, coronal of the pelvi s with PD-weighted FS FSE, T2-weighted FSE and T1-weighted FSE, small field of view of the right hip with axial PD-weighted FS FSE, sagittal PD-weighted FS FSE, coronal PD-weighted FS FSE and coronal T2 weighted FSE. Additional radial T1-weighted FGR oriented orthogonal to the acetabular rim were obt ained for evaluation of the labrum. COMPARISON: Right hip radiograph dated 03/15/2022 FINDINGS: Bones/labrum/cartilage: Alignment is normal. Metallic magnetic field artifact associated with a left total hip arthroplasty. There is prominent marrow edema at the right femoral head and neck appears centered around a small li near low signal intensity subarticular likely insufficiency fracture at the apex of the femoral head. There does not appear to be appreciable collapse of the articular cortex. Nonuniform cartilage loss consistent with osteoarthritis with moderate joint space narrowing at the superior and superomedial a spect of the joint space with subarticular edema at the superomedial aspect of the acetabulum. There is a linear tear at the base of the superolateral right acetabular labrum. More amorphous increased s ignal consistent with degeneration at the posterior superior labrum. Diminutive anterosuperior labrum also likely related to chronic degeneration. Fluid: Moderate-sized right hip joint effusion. No other abnormal fluid collections identified. Soft tissues: No asymmetric muscle atrophy in the pelvis and visualized proximal thighs. Mild likely reactive edema in the soft tissues about the last the intertrochanteric region of the right femur. The iliopsoas, g luteal and proximal hamstring tendons are normal. The uterus is not identified and has likely been donis rgically resected. Small fat-containing umbilical hernia. Limited evaluation of visceral organs of th e pelvis is otherwise unremarkable. No pathologically enlarged pelvic/inguinal lymphadenopathy. IMPRESSION: 1. Moderate right hip osteoarthritis with diffuse labral tear/degeneration. 2. Subarticular likely stress versus insufficiency fracture at the apex of the right femoral head wit h likely secondary reactive moderate sized right hip joint effusion. Reviewed, dictated and finalized at location A. IMPRESSION: 1. Moderate right hip osteoarthritis with diffuse labral tear/degeneration. 2. Subarticular likely stress versus insufficiency fracture at the apex of the right femoral head with likely secondary reactive moderate sized right hip join t effusion.
== END ==
PROVIDERS: PCP Family Medicine; Visit Provider Nurse Practitioner
DX: M16.11 Unilateral primary osteoarthritis, right hip (principal)
CPT/HCPCS: 73721

== ENCOUNTER 2022-04-04 10:23 | Outpatient (CLI) | payer MEDICARE, SELFPAY ==
[2022-04-04 10:50] LABS: Basophils Percent Auto 0.4 % (0.2-1.2); Eosinophils Absolute Auto 0.1 K/mm3 (0-0.3); Eosinophils Percent Auto 2.6 % (0-4.4); Hematocrit 33.6 % (37.0-47.0); Hemoglobin 10.8 g/dL (12.0-15.0); Immature Granulocyte Absolute 0.02 K/mm3 (0.00-0.031); Immature Granulocyte Percent A 0.4 % (0-0.5); Lymphocytes Absolute Auto 1.34 K/mm3 (0.9-3.2); Lymphocytes Percent Auto 26.9 % (18.3-44.2); Mean Corpuscular HGB Conc 32.1 g/dl (32-36); Mean Corpuscular Hemoglobin 28.7 pg (26-34); Mean Corpuscular Volume 89.4 fl (80-100); Mean Platelet Volume 10.4 fl (7.4-10.4); Monocytes Absolute Auto 0.5 K/mm3 (0.1-0.6); Monocytes Percent Auto 10.2 % (2.6-8.5); Neutrophils Percent Auto 59.5 % (45.5-73.1); Platelet Count Result 217 k/mm3 (150-375); Red Blood Count 3.76 M/mm3 (4.2-5.4); Red Cell Distribution Width 15.9 % (11.5-14.5)
[2022-04-04 11:04] LABS: Rheumatoid Factor < 8.6 IU/ML (<12)
[2022-04-04 11:05] LABS: CRP 0.7 mg/dL (<1.0); Uric Acid 5.1 mg/dL (2.5-7.5)
[2022-04-04 12:14] LABS: Erythrocyte Sedimentation Rate 18 mm/hr (0-20)
[2022-04-08 17:28] LABS: Anti Nuclear Antibody Pattern Nuclear, Nucleolar
== END 2022-04-04 10:24 | disposition home or self-care (01) ==
LOC: ANHLAB 10:25
PROVIDERS: PCP Family Medicine; Visit Provider Nurse Practitioner
DX: M16.11 Unilateral primary osteoarthritis, right hip (principal); D89.9 Disorder involving the immune mechanism, unspecified
CPT/HCPCS: 36415; 84550; 85025; 85652; 86038; 86039; 86140; 86430

== ENCOUNTER 2022-07-04 10:08 | Outpatient (CLI) | payer MEDICARE, SELFPAY ==
[2022-07-04 19:03] LABS: Basophils Percent Auto 0.5 % (0.2-1.2); Eosinophils Absolute Auto 0.1 K/mm3 (0-0.3); Eosinophils Percent Auto 1.9 % (0-4.4); Hemoglobin 11.4 g/dL (12.0-15.0); Immature Granulocyte Absolute 0.02 K/mm3 (0.00-0.031); Immature Granulocyte Percent A 0.3 % (0-0.5); Lymphocytes Absolute Auto 1.25 K/mm3 (0.9-3.2); Lymphocytes Percent Auto 21.1 % (18.3-44.2); Mean Corpuscular HGB Conc 30.8 g/dl (32-36); Mean Corpuscular Hemoglobin 27.9 pg (26-34); Mean Corpuscular Volume 90.5 fl (80-100); Mean Platelet Volume 10.9 fl (7.4-10.4); Monocytes Absolute Auto 0.6 K/mm3 (0.1-0.6); Monocytes Percent Auto 9.5 % (2.6-8.5); Neutrophils Percent Auto 66.7 % (45.5-73.1); Platelet Count Result 239 k/mm3 (150-375); Red Blood Count 4.09 M/mm3 (4.2-5.4); Red Cell Distribution Width 16.7 % (11.5-14.5); White Blood Count 5.9 K/mm3 (4.5-10.0)
[2022-07-04 19:18] LABS: Alanine Aminotransferase 23 U/L (6-35); Albumin Level 4.3 g/dL (3.5-5.1); Alkaline Phosphatase 90 U/L (38-126); Anion Gap 8 mmol/L (8-16); Aspartate Amino Transferase 37 U/L (14-36); Bilirubin,Total 0.4 mg/dL (0.2-1.3); Blood Urea Nitrogen 12 mg/dL (7-17); Calcium 9.4 mg/dL (8.4-10.2); Carbon Dioxide 28 mmol/L (22-30); Chloride 100 mmol/L (98-107); Cholesterol 146 mg/dL (0-200); Estimated Glomerular Filt Rate > 60; Glucose 104 mg/dL (65-110); HDL Direct 51 mg/dL; Potassium 4.3 mmol/L (3.4-5.0); Sodium 136 mmol/L (137-145); Triglycerides 117 mg/dL (<150)
[2022-07-04 19:29] LABS: LDL Cholesterol Direct 67 mg/dL
[2022-07-04 19:33] LABS: Hemoglobin A1C 6.2 % (<5.7)
[2022-07-04 19:58] LABS: Creatinine Urine 78.9 mg/dL
[2022-07-04 20:01] LABS: Microalbumin Urine Random 9.5 mg/L (0-16.7)
[2022-07-04 20:55] LABS: Hepatitis C Virus Antibody Negative (Negative)
== END 2022-07-04 10:09 | disposition home or self-care (01) ==
LOC: ANHGOSHLAB 10:10
PROVIDERS: PCP Family Medicine; Visit Provider Family Medicine
DX: E11.9 Type 2 diabetes mellitus without complications (principal); D64.9 Anemia, unspecified; Z11.59 Encounter for screening for other viral diseases
CPT/HCPCS: 36415; 80053; 80061; 82043; 82607; 82728; 83036; 85025; 86803

== ENCOUNTER 2022-07-20 08:36 | Outpatient (CLI) | payer MEDICARE, SELFPAY ==
--- NOTE | ~2022-07-20 | NM_ITS ---
EXAMINATION: NM toshia stress w perfusion DATE: 07/20/2022 10:38 INDICATION: Abnormal electrocardiogram. TECHNIQUE: Rest images were obtained following intravenous administration of 10.0 mCi Tc99m tetrofosm in (Myoview). The patient was infused intravenously with Lexiscan (regadenoson). Then, 32.3 mCi Tc99m tetrofosmin (Myoview) was administered intravenously, and supine and prone stress images were obtain ed. Data was reconstructed into short axis and horizontal and vertical long axis SPECT images. Gated SPECT images were also obtained. COMPARISON: Myocardial perfusion imaging 05/02/2013 FINDINGS: There is no definite reversible or fixed perfusion abnormality to suggest ischemia or infar ction. There is no segmental wall motion abnormality. Left ventricular ejection fraction measures > 70%. IMPRESSION: 1. No definite ischemia or infarct. 2. Normal left ventricular ejection fraction measuring >70%. Reviewed, dictated and finalized at location A.
--- NOTE | 2022-07-20 08:58 | EST_ITS ---
Patient Info Name: Diana Mijares Age: 76 years : 1945 Gender: Female Ht: 63 in Wt: 195 lbs BSA: 2.02 m2 HR: 67 bpm BP: 143 / 85 mmHg Heart Rhythm: Sinus Rhythm Exam Date: 07/20/2022 9:44 AM Exam Location: [facility] Stress Patient Status: Outpatient Admit Date: 07/20/2022 Staff Ordering Physician: Akilah Pascal MD Attending Provider: Akilah Pascal MD Exercise Technologist: Guera Vega CT Nurse: DEBI PONCE Exercise Physician: Efren Ross MD Exam Type: CA stress toshia w NM Study Info Indications Z01.810 - Encounter for preprocedural cardiovascular examination R94.31 - Abnormal electrocardiogram ECG EKG A regadenoson stress test was performed. Summary 1. No ST/T wave changes meeting strict criteria for reversible myocardial ischemia with Lexiscan administration. 2. Occasional stress-induced PVCs. 3. Please correlate with nuclear medicine images, reported separately. 4. No chest discomfort with stress test. Protocol: Lexiscan Stress ECG Details Stage: REST Duration (min): 1 min : 1 sec HR (bpm): 63 SBP (mmHg): 143 DBP (mmHg): 85 Stage: REST Duration (min): 5 min : 19 sec HR (bpm): 65 SBP (mmHg): 143 DBP (mmHg): 85 Stage: STAGE 1 Duration (min): 0 min : 59 sec HR (bpm): 87 SBP (mmHg): 143 DBP (mmHg): 85 Stage: RECOVERY Duration (min): 1 min : 0 sec HR (bpm): 90 SBP (mmHg): 149 DBP (mmHg): 81 Stage: RECOVERY Duration (min): 2 min : 0 sec HR (bpm): 83 SBP (mmHg): 149 DBP (mmHg): 81 Stage: RECOVERY Duration (min): 3 min : 0 sec HR (bpm): 76 SBP (mmHg): 149 DBP (mmHg): 81 Stage: RECOVERY Duration (min): 4 min : 0 sec HR (bpm): 77 SBP (mmHg): 144 DBP (mmHg): 80 Stage: RECOVERY Duration (min): 4 min : 2 sec HR (bpm): 76 SBP (mmHg): 144 DBP (mmHg): 80 Rest HR: 65 bpm Peak HR: 93 bpm Rest Sys BP: 143 mmHg Peak Sys BP: 149 mmHg Max Pred HR: 146 bpm % Max Pred HR: 64 % Target HR: 124 bpm Max RPP: 13,857 bpm*mmHg Termination Reason: Completed protocol Total Time: 1 min : 0 sec Rest Schofield BP: 85 mmHg Peak Schofield BP: 81 mmHg Total Dose: 0.4 mg Resting ECG Sinus rhythm poor R-wave progression. Stress ECG No ST/T wave changes meeting strict criteria for reversible myocardial ischemia with Lexiscan administration. Arrhythmias Occasional stress-induced PVCs. Report Signatures
== END 2022-07-20 08:37 | disposition home or self-care (01) ==
PROVIDERS: PCP Family Medicine; Visit Provider Family Medicine
DX: R94.31 Abnormal electrocardiogram [ECG] [EKG] (principal)
CPT/HCPCS: 78452; 93017; A9502; J2785

== ENCOUNTER 2022-10-07 10:37 | Emergency (ER) | payer MEDICARE, SELFPAY ==
[2022-10-07 11:17] VITALS: BP 122/53; PULSE 64; RESP 18; TEMP 36.8; O2SAT 100
[2022-10-07] MEDS: TETANUS,DIPHTHERIA,AC PERTUSSIS ADULT (0.5 ML) BOOSTRIX IM (11:49)
--- NOTE | 2022-10-07 18:38 | ED.GENADULT ---
HPI - General Adult General Chief complaint: Skin/Abscess/Foreign Body Stated complaint: cat bite History of Present Illness HPI narrative: 76 y/o female. PMHx Asthma, GERD, HTN, Dyslipidemia, DM II. Presents to [facility] today with acute complaints of a cat bite to her left hand. Client reports to have been playing with her family cat at home, when the feline had bit the upper aspect of her left hand. There has been worsening redness and pain to site since ocurrence 2 days ago. -Feline has been in family for many years and is UTD on vaccines according to patient, no additional rabies or disease concerns. -No fever. -No active discharge at site. -Denies bony pain or joint issues. -Unknown last Tetanus. -She is diabetic as aforementioned, without reported significant glucose fluctuations. Related Data Allergies Allergy/AdvReac Type Severity Reaction Status Date / Time Corticosteroids Allergy Intermediate topical: Verified 10/07/22 11:35 (Glucocorticoids) swelling at site of application hydrocortisone Allergy Intermediate RASH Verified 10/07/22 11:35 adhesive tape Allergy Mild Rash Verified 10/07/22 11:35 Review of Systems Review of Systems: CONSTITUTIONAL: Denies fever, chills, sweats. EYES: Denies visual changes, redness, discharge. ENT: Denies rhinorrhea, congestion, sore throat, otalgia. CARDIOVASCULAR: Denies chest pain, palpitations, edema. RESPIRATORY: Denies dyspnea, wheezing, cough GASTROINTESTINAL: Denies abdominal pain, nausea, vomiting, diarrhea. GENITOURINARY: Denies dysuria, hematuria, abnormal discharge SKIN: Cat bite wound to Left hand. Denies rash or itching. MUSCULOSKELETAL: Denies acute back pain, joint pain, or myalgia. NEUROLOGIC: Denies numbness, or focal weakness. PSYCHIATRIC: Denies anxiety or depression. [facility] Past Medical History Medical History Abnormal CT of the abdomen 06/20/2021 ct abd: 1. Interval resolution of the previously described urothelial thickening and enhancement of the ureters, most consistent with resolved infection/inflammation. Asthma, mild intermittent Cholelithiasis NOS Chronic GERD COVID Dysuria Essential hypertension Left shoulder pain Mixed hyperlipidemia Pain in right shoulder Palpitations with regular cardiac rhythm Postmenopausal atrophic vaginitis Postmenopausal symptoms Pyelonephritis Shingles Type 2 diabetes mellitus without complications Surgical History Surgical History History of cholecystectomy History of left hip replacement History of shoulder surgery right Shoulder scope History of total right knee replacement Status post left partial knee replacement Social History Social History Smoking status: Never smoker Alcohol intake: never Substance use: never Substance use type: does not use Additional living arrangements comments: Spouse Leonardo Gender identity (if verbalized by the patient): Female Exam Narrative: GENERAL: This is a well-nourished, well-developed adult, in no apparent distress. HEAD: normocephalic. EYES: Sclera clear/white. EARS: External ears normal. NOSE: External nose normal. THROAT: Mucous membranes moist. NECK: Neck supple. CARDIOVASCULAR: Regular rate and rhythm. Strong pulses and cap refill LUE. RESPIRATORY: Clear to auscultation. GASTROINTESTINAL: Abdomen soft, non-tender. SKIN: With superficial puncture wound/feline bite located to left lateral and dorsal hand, proximal to 4th/5th digit. Area is scabbed over, with 3 cm of surrounding soft tissue erythema/induration. No fluctuance. No necrotic tissue changes or active discharge at site. No appreciable FB. Tissue blanches well. NEURO: Alert, active, and age appropriate. Good sensation and discrimination LUE, all sites. EXTREMITIES: Full and unrestricted ROM LT
== END 2022-10-07 11:53 | disposition home or self-care (01) ==
PROVIDERS: Emergency Provider Nurse Practitioner Adult Health; PCP Family Medicine
DX: S61.432A Puncture wound without foreign body of left hand, initial encounter (principal); L03.114 Cellulitis of left upper limb; W55.01XA Bitten by cat, initial encounter; Z23 Encounter for immunization; I10 Essential (primary) hypertension; E11.9 Type 2 diabetes mellitus without complications; Z96.642 Presence of left artificial hip joint; Z96.653 Presence of artificial knee joint, bilateral; J45.909 Unspecified asthma, uncomplicated; Z86.16 Personal history of COVID-19; K21.9 Gastro-esophageal reflux disease without esophagitis; E78.5 Hyperlipidemia, unspecified
CPT/HCPCS: 90471; 90715; 99213; G0463

== ENCOUNTER 2023-04-06 09:20 | Outpatient (CLI) | payer MEDICARE, SELFPAY ==
[2023-04-06 09:58] LABS: Basophils Percent Auto 0.6 % (0.2-1.2); Eosinophils Absolute Auto 0.2 K/mm3 (0-0.3); Eosinophils Percent Auto 3.1 % (0-4.4); Hematocrit 31.9 % (37.0-47.0); Hemoglobin 9.6 g/dL (12.0-15.0); Immature Granulocyte Absolute 0.01 K/mm3 (0.00-0.031); Immature Granulocyte Percent A 0.2 % (0-0.5); Lymphocytes Absolute Auto 1.36 K/mm3 (0.9-3.2); Mean Corpuscular HGB Conc 30.1 g/dl (32-36); Mean Corpuscular Hemoglobin 24.9 pg (26-34); Mean Corpuscular Volume 82.9 fl (80-100); Mean Platelet Volume 10.9 fl (7.4-10.4); Monocytes Absolute Auto 0.6 K/mm3 (0.1-0.6); Monocytes Percent Auto 11.9 % (2.6-8.5); Neutrophils Absolute Auto 2.7 K/mm3 (1.3-6.7); Neutrophils Percent Auto 56.2 % (45.5-73.1); Platelet Count Result 218 k/mm3 (150-375); Red Blood Count 3.85 M/mm3 (4.2-5.4); Red Cell Distribution Width 16.6 % (11.5-14.5); White Blood Count 4.9 K/mm3 (4.5-10.0)
[2023-04-06 17:45] LABS: Iron 46 ug/dL (37-170)
[2023-04-06 17:55] LABS: Percent Iron Saturation 11 % (20-50)
[2023-04-06 18:21] LABS: Ferritin 9.61 ng/mL (11.1-264)
== END 2023-04-06 09:21 | disposition home or self-care (01) ==
LOC: ANHLAB 09:22
PROVIDERS: PCP Family Medicine; Visit Provider Internal Medicine Hematology & Oncology
DX: D64.9 Anemia, unspecified (principal)
CPT/HCPCS: 36415; 82607; 82728; 83540; 83550; 84443; 85025

== ENCOUNTER 2023-07-28 09:31 | Outpatient (CLI) | payer MEDICARE, SELFPAY ==
--- NOTE | ~2023-07-28 | MM_ITS ---
EXAMINATION: MM screening delbert BI w ariel HISTORY: Screening mammogram TECHNIQUE: Craniocaudal and mediolateral oblique 3-D tomosynthesis images were obtained and synthetic 2-D images were generated. CAD analysis was submitted and interpreted. COMPARISON: March 11, 2021 diagnostic bilateral mammogram and limited left breast ultrasound 06/29/2020 02/06/2019 bilateral screening mammogram examinations BREAST PARENCHYMAL COMPOSITION: There are scattered areas of fibroglandular density. FINDINGS: There is no evidence of suspicious mass, calcification, or architectural distortion to sugg est malignancy in either breast. There has been no suspicious interval change. IMPRESSION: 1. No mammographic evidence of malignancy. 2. Recommend routine screening mammography in one year. BI-RADS Category 1: Negative Reviewed, dictated and finalized at location A.
--- NOTE | ~2023-07-28 | DEXA_ITS ---
Bone Density Report Name: KAVITA YO Age: 77 Sex: Female Ethnicity: White Date of : 1945 Indication: osteopenia; height loss; asthma or emphysema; hysterectomy; postmenopausal Referring Provider: PAOLA ARROYO Study: Bone densitometry was performed. Exam Date: July 28, 2023 Accession number: [id number] Bone Density: Region BMD T-score Z-score Classification AP Spine(L1-L4) 0.836 -1.9 0.5 Osteopenia World Health Organization criteria for BMD impression classify patients as: Normal (T-score at or above -1.0), Osteopenia (T-score between -1.0 and -2.5), or Osteoporosis (T-score at or below -2.5). Previous Exams: Region Exam Age BMD T-score BMD Change BMD Change Date g/cm2 vs Baseline vs Previous AP Spine (L1-L4) 07/28/2023 77 0.836 -1.9 -0.033 (-3.8%) -0.033 (-3.8%) 03/11/2021 75 0.869 -1.6 *Denotes significance at 95% confidence level, LSC for AP Spine = 0.022 g/cm2 Clinical Information Provided by Patient: Has used the following medications: Vitamin D Has the following medical conditions: Asthma or Emphysema, Hysterectomy Patient maximum height was 63.5 Menopause Age: 47 No regular weight bearing exercise Drinks caffeinated beverages Onset of menses at age 14 Number of children 4 Impression: The patient has low bone mass, based on the Total Spine T-score. The BMD for the AP Spine (L1-L4) decreased, changing by -3.8% since the last DXA exam. Discussion: BONE DENSITY IS LOW AT ONE OR MORE SKELETAL SITES. This patient's lowest T-score is low at one or more skeletal sites. It meets the World Health Organization's (WHO) criteria for ?low bone mass? (T-score between -1.0 and -2.5). The patient's 10-year risk of fracture as calculated by FRAX is less than the threshold where pharmacological therapy is recommended by the National Osteoporosis Foundation (NOF). However, all treatment decisions require clinical judgment and consideration of individual patient factors, including patient preferences, comorbidities, previous drug use, risk factors not captured in the FRAX model (e.g., frailty, falls, vitamin D deficiency, increased bone turnover, interval significant decline in bone density) and possible under or overestimation of fracture risk by FRAX. The patient should follow a healthful lifestyle (good nutrition with adequate calcium and vitamin D, and appropriate weight-bearing exercise). Follow-Up: Consider repeating this study in 2 years to reassess this patient's status, or sooner if there is some new clinical indication. Reported by: [facility] on 07/28/2023 9:57:00 AM. Reviewed, dictated and finalized at location [facility]er[facility]
== END 2023-07-28 09:32 | disposition home or self-care (01) ==
LOC: ANHIMG 09:33
PROVIDERS: PCP Family Medicine; Visit Provider Family Medicine
DX: Z12.31 Encounter for screening mammogram for malignant neoplasm of breast (principal); Z78.0 Asymptomatic menopausal state; M85.88 Other specified disorders of bone density and structure, other site
CPT/HCPCS: 77063; 77067; 77080

== ENCOUNTER 2024-03-18 09:59 | Outpatient (CLI) | payer MEDICARE, SELFPAY ==
[2024-03-18 19:03] LABS: Alanine Aminotransferase 17 U/L (6-35); Albumin Level 4.5 g/dL (3.5-5.1); Alkaline Phosphatase 73 U/L (38-126); Anion Gap 11 mmol/L (4-12); Aspartate Amino Transferase 34 U/L (14-36); Bilirubin,Total 0.5 mg/dL (0.2-1.3); Blood Urea Nitrogen 24 mg/dL (7-17); Calcium 9.8 mg/dL (8.4-10.2); Carbon Dioxide 22 mmol/L (22-30); Chloride 104 mmol/L (98-107); Cholesterol 136 mg/dL (0-200); Estimated Glomerular Filt Rate 34; Glucose 89 mg/dL (65-110); HDL Direct 50 mg/dL; Potassium 3.8 mmol/L (3.4-5.0); Sodium 137 mmol/L (137-145); Triglycerides 152 mg/dL (<150)
[2024-03-18 19:15] LABS: LDL Cholesterol Direct 57 mg/dL
[2024-03-18 19:35] LABS: Creatinine Urine 154.7 mg/dL
[2024-03-18 19:57] LABS: Vitamin D 25 Hydroxy 22.7 ng/mL
[2024-03-18 20:51] LABS: Hemoglobin A1C 5.4 % (<5.7)
[2024-03-18 21:02] LABS: MALB Creatinine Ratio 193.1 mg/g (0-30); Microalbumin Urine Random 298.8 mg/L (0-16.7)
== END 2024-03-18 10:00 | disposition home or self-care (01) ==
PROVIDERS: PCP Family Medicine; Visit Provider Family Medicine
DX: E11.9 Type 2 diabetes mellitus without complications (principal); E55.9 Vitamin D deficiency, unspecified
CPT/HCPCS: 36415; 80053; 80061; 82043; 82306; 82607; 83036

== ENCOUNTER 2024-04-09 11:16 | Outpatient (CLI) | payer MEDICARE, SELFPAY ==
--- NOTE | ~2024-04-09 | US_ITS ---
Renal-Bladder ultrasound Clinical History: Renal failure Technique: Real-time sonographic imaging of the kidneys and urinary bladder was performed. Findings: The right kidney measures 10.4 cm in length and the left kidney measures 10.8 cm. There is no hydronephrosis or renal calculus identified. Renal cortical echogenicity is within normal limits. No renal mass lesion is identified. The urinary bladder is moderately distended at the time of this exam. No intraluminal echoes are iden tified. No abnormal wall thickening is seen. Impression: Unremarkable ultrasound of the kidneys and urinary bladder. Reviewed, dictated and finalized at location . Impression: Unremarkable ultrasound of the kidneys and urinary bladder.
== END 2024-04-09 11:17 | disposition home or self-care (01) ==
PROVIDERS: PCP Family Medicine; Visit Provider Internal Medicine Nephrology
DX: N17.9 Acute kidney failure, unspecified (principal); E11.9 Type 2 diabetes mellitus without complications
CPT/HCPCS: 76775

== ENCOUNTER 2024-05-05 12:29 | Outpatient (CLI) | payer MEDICARE, SELFPAY ==
[2024-05-05 16:30] LABS: Complement C3 131 mg/dL (88-165)
[2024-05-05 16:53] LABS: Creatinine Urine 160.8 mg/dL; Total Protein Urine Random 24 mg/dL; Ur Ttl Prot Creatinine Ratio 0.15 mg/mg (0-0.20)
[2024-05-05 17:14] LABS: Anion Gap 6 mmol/L (4-12); Blood Urea Nitrogen 22 mg/dL (7-17); Calcium 9.7 mg/dL (8.4-10.2); Carbon Dioxide 29 mmol/L (22-30); Chloride 105 mmol/L (98-107); Estimated Glomerular Filt Rate > 60; Glucose 88 mg/dL (65-110); Phosphorus 3.8 mg/dL (2.5-4.5); Potassium 3.9 mmol/L (3.4-5.0); Sodium 140 mmol/L (137-145)
[2024-05-06 12:38] LABS: Creatinine, Random Urine 156 mg/dL (20-275); Total Protein/Creatinine Ratio 218 mg/g creat (24-184)
[2024-05-06 14:32] LABS: Protein, Total 6.1 g/dL (6.1-8.1)
[2024-05-06 15:59] LABS: Albumin 3.8 g/dL (3.8-4.8); Alpha 1 Globulin 0.2 g/dL (0.2-0.3); Alpha 2 Globulin 0.6 g/dL (0.5-0.9); Beta 1 Globulin 0.4 g/dL (0.4-0.6); Gamma Globulin 0.8 g/dL (0.8-1.7)
[2024-05-07 14:38] LABS: Anti Glomerular Basement Memb <1.0 AI
[2024-05-08 12:19] LABS: ANCA Screen NEGATIVE (NEGATIVE)
== END 2024-05-05 12:30 | disposition home or self-care (01) ==
PROVIDERS: PCP Family Medicine; Visit Provider Internal Medicine Nephrology
DX: N17.9 Acute kidney failure, unspecified (principal); E11.9 Type 2 diabetes mellitus without complications
CPT/HCPCS: 36415; 80069; 82570; 83520; 84155; 84156; 84165; 84166; 86036; 86038; 86039; 86160; 86225

== ENCOUNTER 2024-09-15 10:15 | Outpatient (CLI) | payer MEDICARE, SELFPAY ==
[2024-09-15 16:03] LABS: Cholesterol 150 mg/dL (0-200); HDL Direct 48 mg/dL; Triglycerides 113 mg/dL (<150)
[2024-09-15 16:14] LABS: LDL Cholesterol Direct 63 mg/dL
[2024-09-15 16:33] LABS: Vitamin D 25 Hydroxy 22.7 ng/mL
[2024-09-15 16:57] LABS: Creatinine Urine 174.2 mg/dL
[2024-09-15 17:00] LABS: MALB Creatinine Ratio 49.5 mg/g (0-30); Microalbumin Urine Random 86.3 mg/L (0-16.7)
[2024-09-15 17:47] LABS: Hemoglobin A1C 5.4 % (<5.7)
== END 2024-09-15 10:16 | disposition home or self-care (01) ==
PROVIDERS: PCP Family Medicine; Visit Provider Nurse Practitioner Family
DX: E11.9 Type 2 diabetes mellitus without complications (principal); E66.9 Obesity, unspecified; E78.2 Mixed hyperlipidemia; E55.9 Vitamin D deficiency, unspecified
CPT/HCPCS: 36415; 80061; 82043; 82306; 83036; 84443

== ENCOUNTER 2024-10-21 08:42 | Outpatient (CLI) | payer MEDICARE, SELFPAY ==
--- NOTE | ~2024-10-21 | XR_ITS ---
3 VIEWS LUMBAR SPINE Ordering provider: Jaime Leslie APRN History: . M54.9 - Dorsalgia, unspecified . Comparison: None. FINDINGS: VERTEBRAL BODIES: No visible fracture or subluxation. Loss of height is seen anteriorly in T12 which is most likely chronic. DISK SPACES: Severe Narrowing of the disc T11-T12, T12-L1, L1-L2 and L5-S1. Facet joint disease at th e level of L4-L5 and L5-S1. SOFT TISSUES: Aortic atherosclerotic changes. Bilateral hip arthroplasty is noted. IMPRESSION: No acute osseous abnormality lumbar spine. Multilevel degenerative disc disease. Reviewed, dictated and finalized at location A. WORK TEACHER
--- NOTE | ~2024-10-21 | XR_ITS ---
3 VIEWS THORACIC SPINE Ordering provider: Jaime Leslie APRN History: . M54.9 - Dorsalgia, unspecified . Comparison: None. FINDINGS: VERTEBRAL BODIES: Slight loss of height is seen in T11 and T12 which is most likely chronic. Otherwis e, Normal height and alignment. No visible fracture or subluxation. Degenerative changes of the spine . DISK SPACES: Severe narrowing of the disc spaces at multiple levels in the mid and lower thoracic are a. SOFT TISSUES: Normal. IMPRESSION: No definite acute osseous abnormality of the thoracic spine. Reviewed, dictated and finalized at location A. ARCH RECRUITER
== END 2024-10-21 08:43 | disposition home or self-care (01) ==
PROVIDERS: PCP Family Medicine; Visit Provider Student in an Organized Health Care Education/Training Program
DX: M51.369 Other intervertebral disc degeneration, lumbar region without mention of lumbar back pain or lower extremity pain (principal)
CPT/HCPCS: 72070; 72100

== ENCOUNTER 2025-08-11 16:04 | Emergency (ER) | payer MEDICARE, SELFPAY ==
--- NOTE | ~2025-08-11 | XR_ITS ---
EXAMINATION: XR foot RT min 3V, 08/11/2025 16:35 CDT HISTORY: injury 1 wk ago, distal, medial pain, dropped wooden rail on COMPARISON: No comparisons available. Findings: No acute fracture or malalignment. No significant degenerative changes. Soft tissues unremarkable. Impression: No acute fracture or malalignment. Reviewed, dictated and finalized at location A. Impression: No acute fracture or malalignment.
[2025-08-11 16:17] VITALS: BP 101/52; PULSE 79; RESP 16; TEMP 35.9; O2SAT 100
--- NOTE | 2025-08-11 16:21 | ED.LOWEXIN ---
HPI - Extremity Injury (Lower) General Chief Complaint: Extremity Injury, Lower Stated Complaint: Injured Toe Time Seen by Provider: 08/11/25 16:21 Source: patient and RN notes reviewed Mode of arrival: ambulatory Limitations: no limitations History of Present Illness HPI Narrative: 79-year-old female Presents Express Care complaining of injury to right foot. Patient reports was moving a headboard of the bed when she dropped down her right foot injury in her 1st and 2nd toes. Patient accidentally stubbed it again today. Patient reports bruising to the distal part of her foot neuro 1st and 2nd toes. Patient denies any numbness, tingling or any other injuries. Patient denies any significant past medical history. Related Data Allergies Allergy/AdvReac Type Severity Reaction Status Date / Time Corticosteroids Allergy Intermediate topical: Verified 08/03/25 10:54 (Glucocorticoids) swelling at site of application.tolerates oral pred adhesive tape Allergy Mild Rash Verified 08/03/25 10:54 Review of Systems Review of Systems: CONSTITUTIONAL: Denies fever, chills, or sweats. EYES: Denies visual changes, redness, or discharge. ENT: Denies rhinorrhea, congestion, sore throat, or otalgia. CARDIOVASCULAR: Denies chest pain, palpitations, or edema. RESPIRATORY: Denies cough or dyspnea. GASTROINTESTINAL: Denies abdominal pain, nausea, vomiting, or diarrhea. GENITOURINARY: Denies dysuria or hematuria. SKIN: Denies rash, wound, or itching. MUSCULOSKELETAL: Denies back pain, joint pain, or myalgia. Positive for right foot injury and bruising NEUROLOGIC: Denies headache, numbness, or weakness. PSYCHIATRIC: Denies anxiety or depression. All other systems reviewed are negative, except as documented in HPI. [facility] Past Medical History Medical History LUBNA (acute kidney injury) Dysuria COVID Left shoulder pain Pain in right shoulder Abnormal CT of the abdomen 06/20/2021 ct abd: 1. Interval resolution of the previously described urothelial thickening and enhancement of the ureters, most consistent with resolved infection/inflammation. Pyelonephritis Shingles Postmenopausal symptoms Postmenopausal atrophic vaginitis Cholelithiasis NOS Chronic GERD Essential hypertension Palpitations with regular cardiac rhythm Mixed hyperlipidemia Surgical History Surgical History H/O cataract removal with insertion of prosthetic lens History of right hip replacement 08/2022 -Counts include 234 beds at [facility] [address] C[facility] History of cholecystectomy History of shoulder surgery right Shoulder scope History of total right knee replacement Status post left partial knee replacement History of left hip replacement Social History Social History Smoking status: Never smoker Alcohol intake: never Substance use: never Substance use type: does not use Do You Feel Safe in your Home?: Yes Lack of Transportation: No Lack of Food: Never True Current Housing: I Have Housing Concerned About Future Housing: No Difficulty Paying Gas/Electric Bills: No Difficulty Paying for Meds: No Currently Unemployed: No Education: Master's Degree or Higher Difficulty w/ Childcare or Family Care: No Living arrangements: with family Additional living arrangements comments: Spouse Leonardo Occupation/Education: retired Gender identity (if verbalized by the patient): Female Spiritual care concerns: No Comments At the time of my signature, I reviewed and agree with the nursing past medical, surgical, social, and family history. There is no relevant family history pertinent to the patient complaint. Exam Narrative: GENERAL: This is a well-nourished, well-developed adult, in no apparent distress. They are non ill-appearing, nontoxic appearing. HEAD: normocephalic, atraumatic. EYES: Sclera clear/white. Vision is grossly intact. Conjunctiva normal. Extraocular movement intact. EARS: External ears normal Hearing grossly intact. NOSE: External nose normal THROAT: Mucous membranes moist NECK: Neck supple CARDIOVASCULAR: Regular rate and rhythm RESPIRATORY: Respiratory rate normal, respiratory effort nonlabored, no respiratory distress NEURO: awake, alert, and oriented to person, place and time. There were no obvious focal neurologic abnormalities. EXTREMITIES: Right foot: No obvious deformity, injury, bruising, redness. Nontender through full range of motion. Great toe tender to palpate and is edematous. Second toe is tender to palpate without any obvious swelling or injury. Tender to palpate to the base of the forefoot in between the 1st and 2nd metatarsal. Capillary refill less than 3 seconds. Right pedal Pulse 2 +palpable. Normal sensation. Neurovascular status intact distal injury. Patient able to wiggle her toes toes. BACK: Nontender without deformity. Course Course Emergency Course: Portions of this record may have been created with voice recognition software Level of Care: Express Care Visit Vital Signs Vital signs: Vital Signs Temperature 96.7 F L 08/11/25 16:17 Pulse Rate 79 08/11/25 16:17 Respiratory Rate 16 08/11/25 16:17 Blood Pressure 101/52 L 08/11/25 16:17 Pulse Oximetry 100 08/11/25 16:17 Temperature 96.7 F L 08/11/25 16:17 Pulse Rate 79 08/11/25 16:17 Respiratory Rate 16 08/11/25 16:17 Blood Pressure 101/52 L 08/11/25 16:17 Pulse Oximetry 100 08/11/25 16:17 Reviewed MDM - Extremity Injury (Lower) MDM Narrative Medical decision making narrative: X-ray right foot shows negative for any fractures or acute findings. Likely a foot contusion/jammed toe. Discussed physical exam findings. Advised supportive measures and signs/symptoms to go to the ER. Pt is appropriate for outpt treatment and f/u. Differential Diagnosis Differential diagnosis: Likely other (Toe sprain, toe contusion, toe fracture, foot fracture, foot sprain, foot contusion) Imaging Data Radiologist's impression: ITS Impressions Foot X-Ray 08/11/25 17:27 Impression: No acute fracture or malalignment. Critical Care Time Critical Care Time Critical Care Time: No Discharge Plan Discharge Clinical Impression: Injury of foot, right Qualifiers: Encounter type: initial encounter Qualified Code(s): S99.921A - Unspecified injury of right foot, initial encounter Patient Disposition: Home Condition: Stable Instructions: Foot Sprain (ED) Additional Instructions: The x-ray of your right foot is negative for any fractures or acute findings. Rest and elevate the leg; bear weight as tolerated Apply ice 15-20 minute intervals several times a day Keep it wrapped with KANCHAN You may take ibuprofen 600 mg to 800 mg every 6-8 hours. Do not exceed more than 800 mg of ibuprofen per dose. Do not exceed more than 3200 mg ibuprofen in a day. You may take up to 1000 mg Tylenol every 6-8 hours. Do not exceed 1000 mg per dose, do exceed more than 4000 mg of Tylenol in a day. Follow up with your primary care provider as needed in 1-2 weeks test if pain persist. Patient Language: Afghan Prescriptions: No Action metoprolol succinate 100 mg tablet extended release 24 hr See Rx Instructions .ROUTE .COMPLEX Qty: 90 1RF Dose Instruction: TAKE 1 TABLET BY MOUTH DAILY Rx Instructions: TAKE 1 TABLET BY MOUTH DAILY rosuvastatin 10 mg tablet See Rx Instructions .ROUTE .COMPLEX Qty: 90 1RF Dose Instruction: TAKE 1 TABLET BY MOUTH DAILY Rx Instructions: TAKE 1 TABLET BY MOUTH DAILY isosorbide mononitrate 30 mg tablet extended release 24 hr See Rx Instructions .ROUTE .COMPLEX Qty: 90 1RF Dose Instruction: TAKE 1 TABLET BY MOUTH DAILY Rx Instructions: TAKE 1 TABLET BY MOUTH DAILY scopolamine base 1 mg over 3 days patch 3 day 1 patch transdermal Q3D PRN (Reason: motion sickness) Qty: 4 0RF tirzepatide 15 mg/0.5 mL pen injector 15 mg subcut WEEKLY Qty: 2 2RF lisinopril 10 mg tablet 10 mg PO DAILY Qty: 90 1RF Patient Comments: 1/2 tablet venlafaxine 75 mg capsule,extended release 24hr See Rx Instructions .ROUTE .COMPLEX Qty: 90 1RF Dose Instruction: TAKE 1 CAPSULE BY MOUTH DAILY Rx Instructions: TAKE 1 CAPSULE BY MOUTH DAILY esomeprazole magnesium 40 mg capsule,delayed release(DR/EC) See Rx Instructions .ROUTE .COMPLEX Qty: 90 1RF Dose Instruction: TAKE 1 CAPSULE BY MOUTH DAILY Patient Comments: .. Rx Instructions: TAKE 1 CAPSULE BY MOUTH DAILY Follow-up/Referrals: Akilah Pascal MD [Primary Care Provider, [facility]] Time of Disposition: 17:41
== END 2025-08-11 17:42 | disposition home or self-care (01) ==
PROVIDERS: PCP Family Medicine
DX: S99.921A Unspecified injury of right foot, initial encounter (principal); W20.8XXA Other cause of strike by thrown, projected or falling object, initial encounter; I10 Essential (primary) hypertension; E78.2 Mixed hyperlipidemia; K21.9 Gastro-esophageal reflux disease without esophagitis; Z96.643 Presence of artificial hip joint, bilateral; Z96.653 Presence of artificial knee joint, bilateral; Z86.16 Personal history of COVID-19
CPT/HCPCS: 73630; 99213; G0463

== ENCOUNTER 2025-09-25 01:08 | Day surgery (SDC) | payer MEDICARE, SELFPAY ==
[2025-09-16 15:03] VITALS: BMI 23.0
--- OUTSIDE RECORDS SUMMARY | 2025-09-25 01:12 | XMS_ITS | Encounter Summary ---
Author Organization [facility] Care Team Providers Care Acetylene Torch Solderer Name Role Phone Akilah Pascal MD Primary Care Provider + No, Physician Primary Care Provider [phone] Akilah Pascal MD Primary Care Provider + Akilah Pascal MD Unavailable [phone] Encounter Details Date Type Department Care Team (Latest Contact Info) Description 07/18/2018 Orders Only [facility] ProviderMimi MD [address] [place] [id number] Social History Tobacco Use Types Packs/Day Years Used Date Smoking Tobacco: Never Assessed Alcohol Use Standard Drinks/Week Comments No 0 (1 standard drink = 0.6 oz pur e alcohol) Comments Unknown Sex and Gender Information Value Date Recorded Sex Assigned at Not on file Legal Sex Female 12:17 PM THORACIC SURGEON Gender Identity Not on file Sexual Orientation Not on file documented as of this encounter Plan of Treatment Not on file documented as of this encounter Procedures Procedure Name Priority Date/Time Associated Diagnosis Comments PROCEDURE - RESULT 06/19/2018 12 :00 AM CDT documented in this encounter Results * PROCEDURE - RESULT (06/19/2018 12:00 AM CDT) Narrative 06/19/2018 12:00 AM CDT Ordered by an unspecified provider. Historical Provider Final Res ult documented in this encounter Visit Diagnoses Not on filedocumented in this encounter Care Teams Acetylene Torch Solderer Relationship Specialty Start Date End Date Akilah Pascal MD PCP - General 06/14/12 01/27/19 No, Physician PCP - General 01/28/19 01/28/19 Akilah Pascal MD PCP - General Family Medicine 01/29/19 Akilah Pascal MD 01/28/19 documented as of this encounter
--- OUTSIDE RECORDS SUMMARY | 2025-09-25 01:12 | XMS_ITS | Clinical Summary ---
Author Organization [facility] Address [address] [place] [address] Care Team Providers Care Dive Master Name Role Phone Akilah Pascal MD Primary Care Provider [phone] Allergies Active Allergy Reactions Criticality Noted Date Comments Tape Rash Low 07/13/2023 Medications No known medications Immunizations Immunization Administration Dates Next Due MODERNA COVID-19 (12+) MRNA, LNP-S, PF, 100 MCG/ 0.5 ML DOSE 01/20/2021,12/23/2020 Social History Tobacco Use Types Packs/Day Years Used Date Smoking Tobacco: Never Smokeless Tobacco: Never Tobacco Cessation:Counseling Given: Not Answered Alcohol Use Standard Drinks/Week Comments Never 0 (1 standard drink = 0.6 oz pur e alcohol) Comments No Sex and Gender Information Value Date Recorded Sex Assigned at Not on file Legal Sex Female 8:16 PM CDT Gender Identity Not on file Sexual Orientation Not on file Last Filed Vital Signs Vital Sign Reading Time Taken Comments Blood Pressure 129/66 07/14/2023 3:30 AM CDT Pulse 70 07/14/2023 2:30 AM CDT Temperature 36.2 C (97.1 F) 07/14/2023 2:16 AM CDT Respiratory Rate 20 07/14/2023 2:16 AM CDT Oxygen Saturation 96% 07/14/2023 3:30 AM CDT Inhaled Oxygen Concentration - - Weight 83.9 kg (185 lb) 07/14/2023 2:16 AM CDT Height 160 cm (5' 3) 07/14/2023 2:16 AM CDT Body Mass Index 32.77 07/14/2023 2:16 AM CDT Plan of Treatment Health Maintenance Due Date Last Done Comments Hepatitis C 1963 Pneumococcal Vaccine: 50+ Years (1 of 1 - PCV) 1997 Zoster Vaccines (1 of 2) 1997 Annual Medicare Wellness Visit 2012 Dexa Scan (General) 2012 RSV Immunization or 60+ Years (1 - 1-dose 75+ series) 2022 COVID-19 Vaccine (3 - 2024-2 6 season) 2025 01/20/2021, 12/23/2020 Influenza Adult (#1) 2025 09/07/2021, 09/09/2019, 08/29/2018 DTaP, Tdap and Td Vaccines ( 2 - Td or Tdap) 09/03/2028 09/03/2018 Hepatitis A Vaccines Aged Out No long er eligible based on patient's age to complete this topic Meningococcal B Vaccine Aged Out No l onger eligible based on patient's age to complete this topic Meningococcal Vaccine Aged Out No annie rodriguez eligible based on patient's age to complete this topic RSV Immunizations Under 20 Months Aged Out No longer eligible b ased on patient's age to complete this topic Insurance AETNA MEDICARE Care Teams Dive Master Relationship Specialty Start Date End Date Akilah Pascal MD [facility] [place] [address] PCP - General FAMILY PRACTICE 07/13/23
--- OUTSIDE RECORDS SUMMARY | 2025-09-25 01:12 | XMS_ITS | Clinical Summary ---
Author Organization [facility] Address [address] [facility] [place] [address] Care Team Providers Care Nurse Practitioner Physician Assistant Name Role Phone Akilah Pascal MD Primary Care Provider Allergies Active Allergy Reactions Criticality Noted Date Comments Adhesive Tape-Silicones Rash Low 07/04/2021 Hydrocortisone Other (See Comments) 11/28/2019 Medications esomeprazole (NexIUM) 40 mg Capsule, Delayed Release(E.C.) Take 40 mg by mouth daily before breakfast. Active isosorbide mononitrate (IMDUR) 30 mg Extended Release 24 hour tablet Take 30 mg by mouth daily in the morning. Active lisinopriL (PRINIVIL) 10 mg tablet Take 10 mg by mouth daily. Active metoprolol succinate (TOPROL XL) 100 mg Extended Release 24 hour tablet Take 100 mg by mouth daily. Active oxybutynin chloride (DITROPAN XL) 15 mg Extended Release 24 hour tablet Take 15 mg by mouth daily. Active rosuvastatin (CRESTOR) 10 mg tablet Take 10 mg by mouth daily. Active venlafaxine (EFFEXOR XR) 75 mg Extended Release 24 hour capsule Take 75 mg by mouth daily. Active nystatin-triamc inolone (MYCOLOG) 100,000-0.1 unit/gram-% Ointment Use to vulvar skin 1-2 times a day 1 Active ketoconazole (NIZORAL) 2 % Cream Apply 1 Tube to affected area 2 times daily. 1 Active isosorbide dinitrate (ISORDIL) 30 mg Tablet Take 30 mg by mouth daily. Active ibuprofen (MOTRIN) 800 mg tablet Take 1 Tablet by mouth. 0 Active clobetasoL (TEMOVATE) 0.05 % Ointment APPLY to vulvar skin 1-2 times a day with flare of itching 1 Active albuterol sulfate 90 mcg/Actuation inhaler INHALE 2 PUFFS PO Q 4 TO 6 H PRN 9 Active cyanocobalamin (VITAMIN B-12) 500 mcg tablet Take 500 mcg by mouth daily. Active estradioL (ESTRACE) 0.01% (0.1 mg/g) vaginal cream Insert 1g into the vagina nightly for 1 week. Then insert 1g into the vagina two times a week thereafter. 1 Active ferrous sulfate 325 mg (65 mg iron) tablet Take 325 mg by mouth daily. Active nitrofurantoin (MACROBID) 100 mg capsule Take 100 mg by mouth 2 times daily. 1 Active nystatin (MYCOSTATIN) 100,000 unit/gram Ointment Apply to affected area 2 times daily as needed. 1 Active Mounjaro 5 mg/0.5 mL Pen Injector 1 Vial by abdominal subcutaneous route every 7 days. 3 Active Active Problems Problem Noted Date Diagnosed Date Chronic anemia 07/04/2021 Encounters Date Type Department Care Team Description 09/22/2025 External Device Data STL ABSTRACTION Provider, Abstract 09/15/2025 External Device Data STL ABSTRACTION Provider, Abstract 07/28/2025 External Device Data STL ABSTRACTION Provider, Abstract 07/14/2025 External Device Data STL ABSTRACTION Provider, Abstract 07/10/2025 11:30 AM CDT Office Visit [facility] - [place] [address] [place] [id number] Phil Lemon MD Chronic anemia (Primary Dx) 07/03/2025 Orders Only [facility] - [place] [address] [place] [address] Phil Lemon MD 07/01/2025 External Device Data STL ABSTRACTION Provider, Abstract from Last 3 Months Family History Medical History Relation Name Comments Diabetes Brother 1 Healthy Daughter Cancer Father Cancer Sister 1 Healthy Son 1 Healthy Son 2 Healthy Son 3 Relation Name Status Comments Brother 1 Alive Brother 2 Daughter Alive Father Mother Sister 1 Alive Sister 2 Alive Son 1 Alive Son 2 Alive Son 3 Alive Social History Tobacco Use Types Packs/Day Years Used Date Smoking Tobacco: Never Smokeless Tobacco: Never Tobacco Cessation:Counseling Given: Not Answered Alcohol Use Standard Drinks/Week Comments Never 0 (1 standard drink = 0.6 oz pur e alcohol) Comments No Sex and Gender Information Value Date Recorded Sex Assigned at Not on file Legal Sex Female 11:41 AM CDT Gender Identity Not on file Sexual Orientation Not on file Last Filed Vital Signs Vital Sign Reading Time Taken Comments Blood Pressure 171/68 07/10/2025 11:04 AM CDT Pulse 68 07/10/2025 11:04 AM CDT Temperature 36.5 C (97.7 F) 07/10/2025 11:04 AM CDT Respiratory Rate 14 07/10/2025 11:0 4 AM CDT Oxygen Saturation 93% 07/10/2025 11: 04 AM CDT Inhaled Oxygen Concentration - - Weight 62.1 kg (136 lb 12.8 oz) 025 11:04 AM CDT Height 161.3 cm (5' 3.5) 03/31/2022 11 :40 AM CDT Body Mass Index 23.85 03/31/2022 11:40 AM CDT Plan of Treatment Upcoming Encounters Date Type Department Care Team (Late st Contact Info) Description 11/10/2025 2:45 PM ANALYTICS SENIOR MANAGER Office Visit [facility] [place] [address] [facility] [address] [place] [address] Phil Lemon MD [address] [facility] [address] [place] [address] Health Maintenance Due Date Last Done Comments DIABETES ANNUAL FOOT EXAM 1965 DIABETES ANNUAL RETINAL EXAM 1965 DIABETES MICROALBUMIN ANNUAL SCREEN 1965 LDL CHOLESTEROL ANNUAL 1965 PNEUMOCOCCAL VACCINE 50+ YEA RS (1 of 2 - PCV) 1966 ZOSTER VACCINE (1 of 2) 1997 OSTEOPOROSIS SCREENING 2012 RSV VACCINE (60+ or ) (1 - 1-dose 75+ series) 2022 DIABETES HBA1C Q 6 MONTHS 02/22/2023 08/25/2022 INFLUENZA VACCINE (#1) 2025 , 09/09/2019, 08/29/2018 COVID-19 Vaccine ( season) 2025, 12/23/2020 DTAP/TDAP/TD VACCINES (2 - T d or Tdap) 09/03/2028 09/03/2018 Procedures Procedure Name Priority Date/Time Associated Diagnosis Comments BASIC METABOLIC PANEL Routine 07/02/2025 12:40 PM CDT CBC WITH AUTODIFFERENTIAL Routine 2024 11:43 AM CDT from Last 3 Months Results * BASIC METABOLIC PANEL (07/02/2025 12:40 PM CDT) Blood us Phil Lemon MD CHEMISTRY ORDERABLES Final Resu lt * CBC WITH AUTODIFFERENTIAL (07/02/2025 11:43 AM CDT) Blood us Phil Lemon MD HEMATOLOGY ORDERABLES Final Res ult from Last 3 Months Insurance [employer] PPO MCR Care Teams Nurse Practitioner Physician Assistant Relationship Specialty Start Date End Date Akilah Pascal MD PCP - General Family Practice 07/04/21
--- OUTSIDE RECORDS SUMMARY | 2025-09-25 01:12 | XMS_ITS | Encounter Summary ---
Author Organization [facility] Facility Care Team Providers Care Houseperson Name Role Phone Akilah Pascal MD Primary Care Provider + No, Physician Primary Care Provider [phone] Akilah Pascal MD Primary Care Provider + Akilah Pascal MD Unavailable [phone] Encounter Details Date Type Department Care Team (Latest Contact Info) Description 07/16/2018 Orders Only [facility] CLINCON[facility] ProviderMimi MD [address] [place] [id number] Social History Tobacco Use Types Packs/Day Years Used Date Smoking Tobacco: Never Assessed Alcohol Use Standard Drinks/Week Comments No 0 (1 standard drink = 0.6 oz pur e alcohol) Comments Unknown Sex and Gender Information Value Date Recorded Sex Assigned at Not on file 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 Historical Provider Final Res ult documented in this encounter Visit Diagnoses Not on filedocumented in this encounter Care Teams Houseperson Relationship Specialty Start Date End Date Akilah Pascal MD PCP - General 06/14/12 01/27/19 No, Physician PCP - General 01/28/19 01/28/19 Akilah Pascal MD PCP - General Family Medicine 01/29/19 Akilah Pascal MD 01/28/19 documented as of this encounter
--- OUTSIDE RECORDS SUMMARY | 2025-09-25 01:12 | XMS_ITS | Clinical Summary ---
Author Organization [facility] Address [address] [place] [address] Care Team Providers Care Stripper And Printer Name Role Phone Akilah Pascal MD Primary Care Provider [phone] [facility],non-owned Affiliates and Associated Physician Practices is amultiple site organization consisting of ambulatory clinics and hospital sitesin [place], [place], [place] and [place]. This disclosure is being madepursuant to the Care Everywhere program and may not contain all information available regarding this patient. Last updated 18.[facility] Allergies Active Allergy Reactions Criticality Noted Date Comments Adhesive Sensitivity Rash Medium 11/28/2019 Hydrocortisone Other 11/28/2019 Wound Dressing Adhesive Rash Medium 07/13/2022 Medications * Be aware that medications may not be up to date on this document. Alwaysverify current medications with the patient. esomeprazole (NEXIUM) 40 MG capsule Take 1 (one) capsule by mouth once daily 9 Active lisinopril (PRINIVIL; ZESTRIL) 10 MG tablet Take 1 (one) tablet by mouth once daily Active rosuvastatin (CRESTOR) 10 MG tablet Take 1 (one) tablet by mouth once daily 9 Active venlafaxine XR 24hr (EFFEXOR XR) 75 MG capsule Take 1 (one) capsule by mouth once daily 3 Active metoprolol succinate XL 24hr (TOPROL XL) 100 MG tablet Take 1 (one) tablet by mouth once daily 9 Active isosorbide mononitrate CR 24hr (IMDUR) 30 MG tablet Take 1 (one) tablet by mouth once daily 0 Active ibuprofen (MOTRIN) 800 MG tablet Take 1 (one) tablet by mouth as needed 0 Active cyanocobalamin (VITAMIN B-12) 500 MCG tablet Take 1 (one) tablet by mouth once daily Active meloxicam (Mobic) 15 MG tablet Take 1 (one) tablet by mouth once daily 4 Active methocarbamol (Robaxin) 750 MG tablet Take 1 (one) tablet by mouth 3 times daily 4 Active Mounjaro 15 MG/0.5ML injection 4 Active Tirzepatide (Mounjaro) 15 MG/0.5ML SOPN 4 Active estradiol (Estrace) 0.1 MG/GM vaginal cream Insert 1g into the vagina nightly for 1 week. Then insert 1g into the vagina two times a week thereafter. 42.5 g 3 5 Active methenamine hippurate (Hiprex) 1 GM tablet Take 1 (one) tablet by mouth 2 times daily 60 tablet 11 5 Active clobetasol (Temovate) 0.05 % ointmentIndicati ons:Lichen sclerosus APPLY to vulvar skin every other day. 30 g 1 5 Active nystatin (Mycostatin) 702127 UNIT/GM ointmentIndicati ons:Vulvar itching Use with the clobetasol to vulvar skin every other day and for itching. 30 g 3 5 Active Active Problems Problem Noted Date Diagnosed Date USP (current) use of antibiotics 2 USP (current) use of oral hypoglycemic patric gs 09/05/2022 Idiopathic aseptic necrosis of right femur 09/01 Type 2 diabetes mellitus without complications 1 Overview (08/26/2025): IMO 02/25/2025 IMO 08/26/2025 Urinary tract infection, site not specified 05/2022 Primary osteoarthritis of right hip 08/11/2022 Overview (08/28/2022): Added automatically from request for surgery [id number] Asthma 07/13/2022 Depressive disorder 07/13/2022 Diabetes mellitus 07/13/2022 Gastroesophageal reflux disease 07/13/2022 Hypercholesterolemia 07/13/2022 Hypertension 07/13/2022 Arthralgia of hip 07/13/2022 Encounter for preprocedural laboratory examinati on 06/28/2022 Mild intermittent asthma without complication Chronic anemia 07/04/2021 Mucous cyst of digit of left hand 10/15/2017 Primary osteoarthritis of fi rst carpometacarpal joint of left hand 10/15/2017 Chest pain 02/03/2015 Overview (03/29/2021): Chest pain Encounters Date Type Department Care Team Description 08/19/2025 Travel from Last 3 Months Family History Medical History Relation Name Comments Cancer - Esophageal Brother stage 4 Cancer - Other Father Cancer - Breast Maternal Aunt COPD - Chronic Obstructive Pulmonary Disease Mother Cancer - Skin, Melanoma Sister 1 Thyroid Disease Sister 1 Cancer - Esophageal Sister 2 Relation Name Status Comments Brother Father Maternal Aunt Maternal Grandfather Maternal Grandmother Mother Paternal Grandfather Paternal Grandmother Sister 1 Alive Sister 2 Social History Tobacco Use Types Packs/Day Years Used Date Smoking Tobacco: Never Smokeless Tobacco: Never Tobacco Cessation:Counseling Given: Not Answered Alcohol Use Standard Drinks/Week Comments Never 0 (1 standard drink = 0.6 oz pur e alcohol) AUDIT-C Answer Date Recorded Frequency of Alcohol Consumption Never 11/28/2019 Average Number of Drinks Not on file 020 Frequency of Binge Drinking Not on file 01/2020 PHQ-2 Answer Date Recorded Patient Health Questionnaire-2 Score 0 04/30/2025 Comments No Sex and Gender Information Value Date Recorded Sex Assigned at Not on file Legal Sex Female 3:20 PM CDT Gender Identity Not on file Sexual Orientation Not on file Last Filed Vital Signs Vital Sign Reading Time Taken Comments Blood Pressure 110/78 04/30/2025 12:08 PM CDT Pulse 62 11/07/2021 10:08 AM TIN POURER Temperature 35.8 C (96.5 F) 10/13/2022 3:55 PM TIN POURER Respiratory Rate - - Oxygen Saturation - - Inhaled Oxygen Concentration - - Weight 61.4 kg (135 lb 6.4 oz) 04/30/2025 12:08 PM CDT Height 160 cm (5' 3) 04/30/2025 12:08 PM CDT Body Mass Index 23.99 04/30/2025 12:08 PM CDT Plan of Treatment Upcoming Encounters Date Type Department Care Team (Late st Contact Info) Description 09/28/2025 9:45 AM TIN POURER Office Visit [facility] - METAL PAINTER [address] [place] [address] Patsy Baltazar MD [address] [place] [address] 10/27/2025 2:00 PM TIN POURER Office Visit [facility] - METAL PAINTER [address] [place] [address] Bren Richards, KARINA-INVESTIGATOR [facility] [address] [place] [address] Health Maintenance Due Date Last Done Comments BONE DENSITY TESTING 1945 HEPATITIS C SCREENING 12/02/1965 DIABETES-SERUM CREATININE 1965 DTAP/TDAP/TD VACCINES (1 - Tdap) 1966 PNEUMOCOCCAL VACCINE 50+ (1 of 2 - PCV) 1966 ZOSTER VACCINE (1 of 2) 1997 DIABETES RETINOPATHY SCREENING 07/13/2022 DIABETES-FOOT EXAM WITH MONOFILAMENT 07/13/2022 DIABETES-HGB A1C 07/13/2022 Respiratory Syncytial Virus (RSV) Vaccine Pt: or over 60 yrs (1 - 1-dose 75+ series) 2022 DIABETES - URINE PROTEIN SCREENING 11/26/2024 MEDICARE AWV CALENDAR YEAR 2024 COVID-19 VACCINE ( season) 2025 01/20/2021, 12/23/2020 INFLUENZA VACCINE (#1) 2025 2, 09/07/2021, 09/09/2019, Additional history exists DEPRESSION SCREENING Completed 04/28/2025, 10/29/20 24 HEPATITIS B VACCINE Aged Out No longe r eligible based on patient's age to complete this topic HIB VACCINE Aged Out No longer eligi ble based on patient's age to complete this topic HPV VACCINE Aged Out No longer eligi ble based on patient's age to complete this topic MENINGOCOCCAL (Group B) VACCINE SHARED DECISION-MAKING Aged Out No longer eligible based on patient's age to complete this topic MENINGOCOCCAL GROUPS A/C/Y/W VACCINE Aged Out No longer eligible based on patient's age to complete this topic Insurance [employer] MEDICARE ADV Care Teams Stripper And Printer Relationship Specialty Start Date End Date Akilah Pascal MD [address] [place] [address] [facility] - General 09/04/19
--- OUTSIDE RECORDS SUMMARY | 2025-09-25 01:12 | XMS_ITS | Encounter Summary ---
Author Organization [facility] Facility Care Team Providers Care Dress Designer Name Role Phone Akilah Pascal MD Primary Care Provider + No, Physician Primary Care Provider [phone] Akilah Pascal MD Primary Care Provider + Akilah Pascal MD Unavailable [phone] Encounter Details Date Type Department Care Team (Latest Contact Info) Description 10/16/2017 Orders Only [facility] CLINCONV ProviderMimi MD [address] [place] [id number] Social History Tobacco Use Types Packs/Day Years Used Date Smoking Tobacco: Never Assessed Alcohol Use Standard Drinks/Week Comments No 0 (1 standard drink = 0.6 oz pur e alcohol) Comments Unknown Sex and Gender Information Value Date Recorded Sex Assigned at Not on file 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 Historical Provider Final Res ult documented in this encounter Visit Diagnoses Not on filedocumented in this encounter Care Teams Dress Designer Relationship Specialty Start Date End Date Akilah Pascal MD PCP - General 06/14/12 01/27/19 No, Physician PCP - General 01/28/19 01/28/19 Akilah Pascal MD PCP - General Family Medicine 01/29/19 Akilah Pascal MD 01/28/19 documented as of this encounter
--- OUTSIDE RECORDS SUMMARY | 2025-09-25 01:12 | XMS_ITS | Clinical Summary ---
Author Organization [facility] [address] Address [address] [place] [address] Care Team Providers Care Vp Strategic Partnerships Name Role Phone Akilah Pascal MD Primary Care Provider + Akilah Pascal MD Unavailable [phone] Allergies Active Allergy Reactions Criticality Noted Date Comments Adhesive Rash Medium 07/13/2023 Adhesive Tape-Silicones Hydrocortisone Medications esomeprazole DR (NexIUM) 40 mg capsule take 1 capsule (40MG) by oral route every day 0 06/14/20 12 Active rosuvastatin (CRESTOR) 10 mg tablet take 1 tablet by oral route every day 0 09/25/20 13 Active aspirin 81 mg tablet take 1 tablet by oral route every day 0 0 09/25/20 13 Active Additional Information Patient not taking.Reported on 08/13/2025 venlafaxine XR (EFFEXOR XR) 75 mg 24 hr capsule take 1 capsule by oral route every day with food 0 0 10/13/20 13 Active Additional Information Patient not taking.Reported on 08/13/2025 nitroglycerin (NITROSTAT) 0.[address] 1 tablet by sublingual route at the 1st sign of attack; may repeat every 5 min until relief; if pain persists after 3 tablets in 15 min, prompt medical attention is recommended 25 1 09/25/20 13 Active metoprolol XL (TOPROL-XL) 100 mg 24 hr tablet TAKE 1 TABLET BY ORAL ROUTE EVERY DAY 30 1 10/13/20 13 Active PROAIR HFA 90 mcg/actuation inhaler INHALE 2 PUFFS PO Q 4 TO 6 H PRN 1 01/21/20 19 Active oxybutynin XL (DITROPAN-XL) 10 mg 24 hr tablet 1 tablet daily 1 02/08/20 19 Active metFORMIN XR (GLUCOPHAGE XR) 500 mg 24 hr tablet 1 tablet (500 mg total) daily 0 02/11/20 19 Active isosorbide dinitrate (ISORDIL) 30 mg tablet Take 30 mg by mouth daily Active lisinopril (PRINIVIL,ZESTRIL) 10 mg tablet Take 1 tablet (10 mg total) by mouth daily Active SocialthingTouch Verio test strips strip USE TO TEST BLOOD SUGAR EVERY DAY AND NEEDED DIRECTED 07/05/20 22 Active OneTouch Verio Flex meter misc as directed 07/05/20 22 Active clobetasoL (TEMOVATE) 0.05 % ointment APPLY to vulvar skin 1-2 times a day with flare of itching 03/29/20 21 Active cyanocobalamin (Vitamin B-12) 500 mcg tablet Take 1 tablet (500 mcg total) by mouth daily Active estradioL (ESTRACE) 0.01 % (0.1 mg/gram) vaginal cream Insert 1g into the vagina nightly for 1 week. Then insert 1g into the vagina two times a week thereafter. 08/12/20 21 Active FeroSuL 325 mg (65 mg iron) tablet Take 1 tablet (325 mg total) by mouth daily 07/07/20 22 Active ibuprofen (ADVIL,MOTRIN) 800 mg tablet Take 1 tablet by mouth 10/28/20 20 Active isosorbide mononitrate ER (IMDUR) 30 mg 24 hr tablet Take 1 tablet (30 mg total) by mouth daily 06/19/20 22 Active ketoconazole (NIZORAL) 2 % cream Apply 1 Tube topically 2 (two) times a day 02/06/20 21 Active methenamine (HIPREX) 1 gram tablet Take 1,000 mg by mouth 2 (two) times a day 07/13/20 22 Active nitrofurantoin monohydrate (MACROBID) 100 mg capsule Take 100 mg by mouth 2 (two) times a day 10/14/20 21 Active nystatin ointment Apply topically 2 (two) times a day as needed 08/08/20 21 Active nystatin-triamcino lone ointment Use to vulvar skin 1-2 times a day 03/29/20 21 Active acetaminophen (TylenoL) 325 mg tablet 2 tablets (650 mg total) 09/02/20 22 Active celecoxib (CeleBREX) 100 mg capsule 1 capsule (100 mg total) 09/02/20 22 Active meloxicam (MOBIC) 15 mg tablet Take 1 tablet (15 mg total) by mouth daily 07/09/20 23 Active ondansetron ODT (ZOFRAN-ODT) 4 mg disintegrating tablet 1 tablet (4 mg total) 09/02/20 22 Active predniSONE (DELTASONE) 10 mg tablet TAKE 8 TABLETS BY MOUTH DAILY X 2 DAYS AND DECREASE BY 1 TABLET X 2 DAYS. 07/03//7/6/6/5/5 /4/4/3/3/2/2/1/ 1 07/19/20 23 Active senna-docusate (Senokot-S) 8.6-50 mg 1 tablet(s), Oral, bid, 60 tablet(s), Tablet(s), 0, 0, Route to Pharmacy Electronically, [facility], [id number], 160, cm, 09/01/2022 0617, Height, 91.9, kg, 09/01/2022 0617, Weight 09/02/20 22 Active sulfamethoxazole-t rimethoprim (Bactrim DS) 800-160 mg per tablet 1 tablet(s), Oral, [id number], 14 tablet(s), Tablet(s), 0, 0, Route to Pharmacy Electronically, [facility], [id number], 160, cm, 09/01/2022 0617, Height, 91.9, kg, 09/01/2022 0617, Weight 09/02/20 22 Active tacrolimus (PROTOPIC) 0.1 % ointment APPLY THIN LAYER TOPICALLY TO ARMPIT EVERY NIGHT 04/27/20 23 Active Mounjaro 2.5 mg/0.5 mL pen injector 07/10/20 23 Active traMADoL (Ultram) 50 mg tablet 1 tablet (50 mg total) 09/02/20 22 Active amoxicillin-clavul anate (AUGMENTIN) 875-125 mg per tablet Take 1 tablet by mouth 2 (two) times a day 06/04/20 24 Active Active Problems Problem Noted Date Diagnosed Date Abnormal electrocardiography 08/13/2025 Allergic rhinitis 08/13/2025 Asthma, moderate persistent 08/13/2025 Calcified cerebral meningioma 08/13/2025 Overview (08/13/2025): 07.14.23 CT head w/o contrast: 4.3 dural based densely calcified lesion in the posterolateral right temporal parietal lob. No surounding edema. no mass effect. likely a densely calcified meningioma and less likely, osteoma Diffuse cystic mastopathy of both breasts 2024 Fatty (change of) liver, not elsewhere classifie d 08/13/2025 History of colonic polyps 08/13/2025 Overview (08/13/2025): colonoscopy: diverticulosis/ repeat 5 years/ [facility] History of COVID-19 08/13/2025 History of total right knee replacement 08/13/20 25 Hypertensive heart disease without heart failure 08/13/2025 Injury of foot, right 08/13/2025 Iron deficiency anemia 08/13/2025 Mitral valve insufficiency, acquired 08/13/2025 Hip pain, right 08/02/2023 Idiopathic aseptic necrosis of right femur 09/01 Type 2 diabetes mellitus without complications 1 Urinary tract infection, site not specified 05/2022 Primary osteoarthritis of right hip 08/11/2022 Overview (08/11/2022): Added automatically from request for surgery [id number] Asthma 08/08/2022 Depressive disorder 08/08/2022 Diabetes mellitus 08/08/2022 Gastroesophageal reflux disease 08/08/2022 Hypercholesterolemia 08/08/2022 Hypertension 08/08/2022 Mild intermittent asthma without complication Chronic anemia 07/04/2021 Paroxysmal supraventricular tachycardia 05/22/20 19 Mucous cyst of digit of left hand 10/15/2017 Primary osteoarthritis of fi rst carpometacarpal joint of left hand 10/15/2017 Chest pain 02/03/2015 Overview (03/02/2017): Chest pain Encounters Date Type Department Care Team Description 08/13/2025 10:15 AM CDT Office Visit [facility] Medicine Neurosurgery [address], [address] [place] [address] Idalia Bhagat NP Meningioma (HCC) (Primary Dx) 08/13/2025 8:07 AM CDT - 08/13/2025 11:59 PM CDT Hospital Encounter [facility] - MRI [address] [place] [address] Meningioma (HCC) Discharge Disposition: Discharge to home or self care 08/13/2025 Telephone [facility] Medicine Neurosurgery [address], [address] [place] [address] Idalia Bhagat NP from Last 3 Months Immunizations Immunization Administration Dates Next Due Influenza, Quadrivalent, Rec ombinant, Egg Free, Preservative Free, Intramuscular 09/07/2021,09/09/2019 Influenza, Trivalent, High D ose, Split, Preservative Free, Intramuscular 08/29/2018 Tdap 09/03/2018 Surgical History Surgery Date Site/Laterality Comments CHOLECYSTECTOMY Cholecystectomy OTHER SURGICAL HISTORY right knee replacement, hysterectomy, right shoulder surgery TOTAL KNEE ARTHROPLASTY 2011 Left Total Knee Replacement Medical History Medical History Date Comments Hx Other Medical DJD, Anxiety, d epression, GERD Hx Other Medical Allergic rhisni tis Gastroesophageal reflux disease GERD Hx Other Medical Bladder hyperac tivity Hx Other Medical Fatty liver Hx Other Medical osteopenia Adiposity Obesity Hx Other Medical Vit D def. Anemia Anxiety Asthma Chest pain COPD (chronic obstructive pulmonary disease) Depression Gastric reflux Osteopenia Family History Medical History Relation Name Comments Other Father 2 Did not know hi m; COPD Mother 2 COPD; Cause of : COPD Relation Name Status Comments Father 1 Alive Father 2 Mother 1 (Age 71) Mother 2 Social History Tobacco Use Types Packs/Day Years Used Date Smoking Tobacco: Never Smokeless Tobacco: Never Tobacco Cessation:Counseling Given: Not Answered Alcohol Use Standard Drinks/Week Comments No 0 (1 standard drink = 0.6 oz pur e alcohol) AUDIT-C Answer Date Recorded Q1: How often do you have a drink containing alcohol? Never 08/14/2024 Q2: How many drinks containi ng alcohol do you have on a typical day when you are drinking? Patient does not drink Q3: How often do you have si x or more drinks on one occasion? Never 08/14/2024 Comments Unknown Sex and Gender Information Value Date Recorded Sex Assigned at Not on file Legal Sex Female 12:17 PM ORDER ENTRY SPECIALIST Gender Identity Not on file Sexual Orientation Not on file Obstetrics History Last Filed Vital Signs Vital Sign Reading Time Taken Comments Blood Pressure 115/71 08/13/2025 10:17 AM CDT Pulse 64 08/13/2025 10:17 AM CDT Temperature 36.3 C (97.4 F) 08/13/2025 10:17 AM CDT Respiratory Rate 18 08/13/2025 10:1 7 AM CDT Oxygen Saturation 97% 08/13/2025 10: 17 AM CDT Inhaled Oxygen Concentration - - Weight 60.7 kg (133 lb 12.8 oz) 025 10:17 AM CDT Height 158.8 cm (5' 2.5) 08/13/2025 10 :17 AM CDT Body Mass Index 24.08 08/13/2025 10:17 AM CDT Plan of Treatment Health Maintenance Due Date Last Done Comments Albumin Creatinine Ratio, Urine 1947 Depression Screening 1947 Fall Risk Assessment 1947 Hemoglobin A1C 1947 Hepatitis C Screening 1947 Osteoporosis Screening-Bone Density Scan 1947 eGFR 1947 Dilated Eye Exam 1947 Foot Exam 1947 Hepatitis B Screening 1965 Zoster Vaccine (2 of 3) 10/05/2009 08/10/2009 Well Visit 65+ 2012 Lipid Panel 04/24/2020 04/24/2019 Covid-19 Vaccine (4 - 2024-2 6 season) 2025 11/27/2021, 01/20/2021, 12/23/2020 Influenza Vaccine (#1) 2025 4, 09/17/2023, 09/07/2021, Additional history exists DTaP/Tdap/Td Vaccine (4 - Td or Tdap) 10/07/2032 10/07/2022, 09/03/2018, 09/11/2013, Additional history exists Pneumococcal vaccine 65+ Completed 015, 07/08/2013, 11/10/2008 Medical Devices Implanted Type Area Entry Level Paralegal Device Identifier Shelf Expiration Date Model / Serial / Lot Knee Replacement-11/26 Implanted:11/26 (Quantity not on file) Left: Knee Knee Replacement-11/26 Implanted:11/26 (Quantity not on file) Right: Knee Hip Replacement-08/26/2017 Implanted:08/26 (Quantity not on file) Left: Hip Hip Replacement-08/26/2022 Implanted:08/26 (Quantity not on file) Right: Hip Procedures Procedure Name Priority Date/Time Associated Diagnosis Comments MRI BRAIN TUMOR W WO CONTRAST Schedule Routine, Read Routine (OP Routine) 08/13/2025 9:06 AM CDT Meningioma (HCC) POCT LIPID PANEL Routine 04/24/2019 9:24 AM CDT Other chest pain from Last 3 Months or Most Recently Relevant to Health Maintenance Results * MRI Brain Tumor W WO Contrast (08/13/2025 9:06 AM CDT) Anatomical Region Laterality Modality Head and Neck N/A Magnetic Resonan ce 08/13/2025 11:3 8 AM CDT Impressions 08/13/2025 11:40 AM CDT Unchanged right temporoparietal dural based calcified lesion most compatible with a meningioma. Dictated by: Enmanuel Narvaez M.D. The radiology attending physician has personally reviewed this study, and had reviewed and/or edited this written report and agrees with it. Electronically signed by: Shahid Paez M.D. Narrative 08/13/2025 11:40 AM CDT EXAMINATION: Magnetic resonance imaging (MRI) of the brain and brainstem without and with contrast HISTORY: Meningioma follow-up TECHNIQUE: Multiplanar multi-weighted MRI of the brain and brainstem was performed without and with intravenous contrast using the brain tumor protocol. This included high-resolution 3D T1-weighted images without and with intravenous contrast and dynamic susceptibility contrast data for perfusion analysis. Contrast information: 12 mL Gadoterate Meglumine IV COMPARISON: MR brain 08/14/2024 and 08/15/2023 FINDINGS: Unchanged 13 x 10 x 14 mm dural-based enhancing lesion along the right temporoparietal convexity. This demonstrates T1, T2, and FLAIR hypointensity. No significant adjacent parenchymal FLAIR hyperintensity. The superior sagittal sinus demonstrates normal venous flow. The corpus callosum is normal in shape and signal intensity. The posterior fossa is unremarkable. The pituitary and sella are normal. The brainstem and craniocervical junction are unremarkable. Diffusion weighted images reveal no hyperintensities to suggest acute cerebral infarction. The ventricles are normal in size and position without evidence of hydrocephalus. Mild leukoaraiosis. The paranasal sinuses are normal. The visualized portions of the mastoids are unremarkable. Bilateral lens replacements. Normal flow voids are demonstrated in the carotid arteries and basilar artery. Procedure Note Shahid Paez III, MD PhD - 08/13/2025 EXAMINATION: Magnetic resonance imaging (MRI) of the brain and brainstem without and with contrast HISTORY: Meningioma follow-up TECHNIQUE: Multiplanar multi-weighted MRI of the brain and brainstem was performed without and with intravenous contrast using the brain tumor protocol. This included high-resolution 3D T1-weighted images without and with intravenous contrast and dynamic susceptibility contrast data for perfusion analysis. Contrast information: 12 mL Gadoterate Meglumine IV COMPARISON: MR brain 08/14/2024 and 08/15/2023 FINDINGS: Unchanged 13 x 10 x 14 mm dural-based enhancing lesion along the right temporoparietal convexity. This demonstrates T1, T2, and FLAIR hypointensity. No significant adjacent parenchymal FLAIR hyperintensity. The superior sagittal sinus demonstrates normal venous flow. The corpus callosum is normal in shape and signal intensity. The posterior fossa is unremarkable. The pituitary and sella are normal. The brainstem and craniocervical junction are unremarkable. Diffusion weighted images reveal no hyperintensities to suggest acute cerebral infarction. The ventricles are normal in size and position without evidence of hydrocephalus. Mild leukoaraiosis. The paranasal sinuses are normal. The visualized portions of the mastoids are unremarkable. Bilateral lens replacements. Normal flow voids are demonstrated in the carotid arteries and basilar artery. IMPRESSION: Unchanged right temporoparietal dural based calcified lesion most compatible with a meningioma. Dictated by: Enmanuel Narvaez M.D. The radiology attending physician has personally reviewed this study, and had reviewed and/or edited this written report and agrees with it. Electronically signed by: Shahid Paez M.D. Idalia Bhagat NP IMG MRI PROCEDURES Final Resul t * POCT lipid panel (04/24/2019 9:24 AM CDT) Cholesterol, POC 135 mg/dL HDL, POC 47 mg/dL Triglycerides, POC 119 mg/dL LDL Cholesterol POC 63 mg/dL Chol/HDL Ratio, POC 2.8 Non-HDL Cholesterol, POC 87 mg/dL Cholesterol Total, POC 135 mg/dL Blood specimen (specimen) 04/24/2019 9:24 AM CDT Hugo Morales MD POINT OF CARE TEST ORDER AYAZ Final Result from Last 3 Months or Most Recently Relevant to Health Maintenance Insurance [facility] MEDICARE ADVANTAGE [facility] MED[facility] Address: [facility] [address] [place] [address] AET MEDICARE FOR[facility]LY [facility] MEDICARE Care Teams Vp Strategic Partnerships Relationship Specialty Start Date End Date Akilah Pascal MD PCP - General Family Medicine 01/29/19 Akilah Pascal MD 01/28/19
[2025-09-25 07:13] VITALS: BP 123/46; PULSE 74; RESP 18; TEMP 36; O2SAT 99
--- NOTE | 2025-09-25 07:18 | WPDANESEPPF ---
Anes - Initial Pre Proc Eval Procedure: Operation Date: 09/25/25 08:30 Proposed Procedures p Screening Colonoscopy - Don Wang MD Date/Time: 09/25/25 07:18 Surgeon: Don Wang MD Pre Op Diagnosis: Personal history of colon polyps, unspecified Patient Data Age: 79 Gender: F Height: 1.6 m Weight: 61.3 kg Last Vital Signs Temp 36.0 C L 09/25/25 07:13 Pulse 74 09/25/25 07:13 Resp 18 09/25/25 07:13 BP 123/46 L 09/25/25 07:13 Pulse Ox 99 09/25/25 07:13 O2 Del Method Room Air 09/25/25 07:13 Allergies Allergy/AdvReac Type Severity Reaction Status Date / Time Corticosteroids Allergy Intermediate topical: Verified 09/25/25 07:11 (Glucocorticoids) swelling at site of application.tolerates oral pred adhesive tape Allergy Mild Rash Verified 09/25/25 07:11 Home Medications ?Medication ?Instructions ?Recorded ?Confirmed ?Type metoprolol succinate 100 mg See Rx Instructions .Route 01/14/25 09/25/25 Rx tablet,extended release 24 hr .COMPLEX #90 tabs rosuvastatin 10 mg tablet See Rx Instructions .Route 03/18/25 09/25/25 Rx .COMPLEX #90 tabs isosorbide mononitrate 30 mg See Rx Instructions .Route 03/26/25 09/25/25 Rx tablet,extended release 24 hr .COMPLEX #90 tabs scopolamine base 1 mg over 3 days 1 patch transdermal Q3D PRN motion 05/04/25 09/16/25 Rx transdermal patch sickness #4 ea lisinopril 10 mg tablet 10 mg PO DAILY #90 tabs 06/05/25 09/25/25 Rx esomeprazole magnesium 40 mg See Rx Instructions .Route 08/03/25 09/25/25 Rx capsule,delayed release .COMPLEX #90 caps venlafaxine 75 mg capsule,extended See Rx Instructions .Route 08/03/25 09/25/25 Rx release 24 hr .COMPLEX #90 caps tirzepatide 15 mg/0.5 mL 15 mg subcut .[id number] 09/16/25 09/25/25 History subcutaneous pen injector Patient hx anesthesia problems: none Family hx anesthesia problems: none Results Review: All pre-operative results and documents have been reviewed as part of the pre-operative evaluation. [facility] Past Medical History Medical History LUBNA (acute kidney injury) Dysuria COVID Left shoulder pain Pain in right shoulder Abnormal CT of the abdomen 06/20/2021 ct abd: 1. Interval resolution of the previously described urothelial thickening and enhancement of the ureters, most consistent with resolved infection/inflammation. Pyelonephritis Shingles Postmenopausal symptoms Postmenopausal atrophic vaginitis Cholelithiasis NOS Chronic GERD Essential hypertension Palpitations with regular cardiac rhythm Mixed hyperlipidemia Surgical History Surgical History H/O cataract removal with insertion of prosthetic lens History of right hip replacement 08/2022 [facility] [address] [facility] History of cholecystectomy History of shoulder surgery right Shoulder scope History of total right knee replacement Status post left partial knee replacement History of left hip replacement Social History Social History Smoking status: Never smoker Alcohol intake: never Substance use: never Substance use type: does not use Do You Feel Safe in your Home?: Yes Lack of Transportation: No Lack of Food: Never True Current Housing: I Have Housing Concerned About Future Housing: No Difficulty Paying Gas/Electric Bills: No Difficulty Paying for Meds: No Currently Unemployed: No Education: Master's Degree or Higher Difficulty w/ Childcare or Family Care: No Living arrangements: with family Additional living arrangements comments: Spouse Leonardo Occupation/Education: retired Gender identity (if verbalized by the patient): Female Spiritual care concerns: No Anes - Eval Final PreProcedure Day of Procedure 09/25/25 07:18 Patient weight: normal Heart: regular rate and rhythm Lungs: clear to auscultation Airway: Mallampati scale class II Neurological: alert and oriented Last oral intake: >/= 8 hours ASA classification: III Emergent: no Anesthetic plan: proceed Anesthesia type and monitoring: general GIVS and standard monitoring Results Review: All pre-operative results and documents have been reviewed as part of the pre-operative evaluation. Informed Consent: The patient's anesthetic plan and its attendant risks and benefits were discussed with the patient/family/POA. Questions were solicited and answers provided to the satisfaction of the patient/family/POA.
[2025-09-25] MEDS: LACTATED RINGERS 1,000 ML 150 ML IV CONT (07:23)
--- NOTE | 2025-09-25 08:20 | PM.HPGS ---
History of Present Illness History of Present Illness Consent: Risks, benefits, and alternatives have been discussed and questions answered. Patient agrees to proceed with procedure. Chief complaint: Personal history of colon polyps, unspecified Narrative: Diana Mijares is a 79 year old female with history of colon polyp Review of Systems Review of Systems: All systems reviewed & are unremarkable except as noted in HPI and below PMFSH Past Medical History Medical History LUBNA (acute kidney injury) Dysuria COVID Left shoulder pain Pain in right shoulder Abnormal CT of the abdomen 06/20/2021 ct abd: 1. Interval resolution of the previously described urothelial thickening and enhancement of the ureters, most consistent with resolved infection/inflammation. Pyelonephritis Shingles Postmenopausal symptoms Postmenopausal atrophic vaginitis Cholelithiasis NOS Chronic GERD Essential hypertension Palpitations with regular cardiac rhythm Mixed hyperlipidemia Surgical History Surgical History H/O cataract removal with insertion of prosthetic lens History of right hip replacement 08/2022 -[facility] [address] [facility] History of cholecystectomy History of shoulder surgery right Shoulder scope History of total right knee replacement Status post left partial knee replacement History of left hip replacement Social History Social History Smoking status: Never smoker Alcohol intake: never Substance use: never Substance use type: does not use Do You Feel Safe in your Home?: Yes Lack of Transportation: No Lack of Food: Never True Current Housing: I Have Housing Concerned About Future Housing: No Difficulty Paying Gas/Electric Bills: No Difficulty Paying for Meds: No Currently Unemployed: No Education: Master's Degree or Higher Difficulty w/ Childcare or Family Care: No Living arrangements: with family Additional living arrangements comments: Spouse Leonardo Occupation/Education: retired Gender identity (if verbalized by the patient): Female Spiritual care concerns: No Meds Home Medications and Allergies Home Medications ?Medication ?Instructions ?Recorded ?Confirmed ?Type metoprolol succinate 100 mg See Rx Instructions .Route 01/14/25 09/25/25 Rx tablet,extended release 24 hr .COMPLEX #90 tabs rosuvastatin 10 mg tablet See Rx Instructions .Route 03/18/25 09/25/25 Rx .COMPLEX #90 tabs isosorbide mononitrate 30 mg See Rx Instructions .Route 03/26/25 09/25/25 Rx tablet,extended release 24 hr .COMPLEX #90 tabs scopolamine base 1 mg over 3 days 1 patch transdermal Q3D PRN motion 05/04/25 09/16/25 Rx transdermal patch sickness #4 ea lisinopril 10 mg tablet 10 mg PO DAILY #90 tabs 06/05/25 09/25/25 Rx esomeprazole magnesium 40 mg See Rx Instructions .Route 08/03/25 09/25/25 Rx capsule,delayed release .COMPLEX #90 caps venlafaxine 75 mg capsule,extended See Rx Instructions .Route 08/03/25 09/25/25 Rx release 24 hr .COMPLEX #90 caps tirzepatide 15 mg/0.5 mL 15 mg subcut .[id number] 09/16/25 09/25/25 History subcutaneous pen injector Allergies Allergy/AdvReac Type Severity Reaction Status Date / Time Corticosteroids Allergy Intermediate topical: Verified 09/25/25 07:11 (Glucocorticoids) swelling at site of application.tolerates oral pred adhesive tape Allergy Mild Rash Verified 09/25/25 07:11 Vital Signs Vital Signs - 24 hr 09/25/25 07:13 Temperature 96.8 F L Pulse Rate 74 Respiratory Rate 18 Blood Pressure 123/46 L Pulse Oximetry 99 Oxygen Delivery Room Air Exam Const: General: comfortable and no acute distress HENMT: Face/Nose/Sinus: Normal nares present Eyes: General: appearance normal, both eyes and all related structures Neck: Neck: no JVD Resp: Auscultation: clear to auscultation bilaterally Cardio: Rate: regular rate Rhythm: regular rhythm GI: Inspection: non-distended GI Palp: Yes Soft to palpation Skin: General skin exam: normal color Extrem: General: normal to inspection Psych: Mental Status: mental status grossly normal Assessment and Plan Assessment and plan (1) Personal history of colonic polyps: Code(s): Z86.010 - Personal history of colon polyps Status: Acute Assessment and Plan: colonoscopy
--- NOTE | 2025-09-25 08:36 | S_PTH ---
PATIENT: Diana Mijares LOC: [facility]#:[id number] AGE/SX: 79/F ROOM: RE09/25/[address]: Don Wang MD : 1945 BED: DIS: 09/25/2025 SPEC #: [id number] RECD: 09/25/25 09:12 STATUS: OC REQ #: [id number] PAMELA: 09/25/25 08:[address]: Don Wang DEPT: [facility] Surgical RECD BY: Kailey Roberts ENTERED: 09/25/25 09:13 SP TYPE: Surgical OTHR DR: Akilah Pascal MD Tissues: A - Colon Polypectomy B - Colon Polypectomy Procedures: Hematoxylin and Eosin Stain Gross and Microscopic Level 4
[2025-09-25 08:39] VITALS: BP 106/47; PULSE 68; RESP 20; O2SAT 99
[2025-09-25 08:49] VITALS: BP 104/53; PULSE 65; RESP 22; O2SAT 100
[2025-09-25 08:59] VITALS: BP 108/57; PULSE 67; RESP 17; O2SAT 100
== END 2025-09-25 09:09 | disposition home or self-care (01) ==
PROVIDERS: PCP Family Medicine; Referring Provider Student in an Organized Health Care Education/Training Program; Visit Provider Internal Medicine Gastroenterology
PROC: 0DJD8ZZ Inspection of Lower Intestinal Tract, Via Natural or Artificial Opening Endoscopic (ICD-10-PCS; CPT 45378; principal; 2025-09-25 08:30)
DX: Z12.11 Encounter for screening for malignant neoplasm of colon (principal); D12.2 Benign neoplasm of ascending colon; D12.3 Benign neoplasm of transverse colon; K63.5 Polyp of colon; K64.8 Other hemorrhoids; K64.4 Residual hemorrhoidal skin tags; I10 Essential (primary) hypertension; E78.2 Mixed hyperlipidemia; K21.9 Gastro-esophageal reflux disease without esophagitis; R00.2 Palpitations; Z79.85 Long-term (current) use of injectable non-insulin antidiabetic drugs; Z98.890 Other specified postprocedural states; Z90.49 Acquired absence of other specified parts of digestive tract
CPT/HCPCS: 45385; 88305; J2003; J2704; J7120